=== PATIENT | female | born 1940 | race Caucasian/White ===

== ENCOUNTER → 2019-01-30 | Outpatient (CLI) | payer MEDICARE, BC | LOC: CPPFTMAIN 12:52 | PROVIDERS: ATTEND Internal Medicine | DX: J43.9 Emphysema, unspecified (principal) | CPT/HCPCS: 94060; 94726; 94729 ==

== ENCOUNTER → 2019-03-06 | Outpatient (CLI) | payer MEDICARE, BC ==
--- NOTE | 2019-03-06 13:12 | CT ---
EXAMINATION TYPE: CT chest wo con DATE OF EXAM: 03/06/2019 COMPARISON: 02/07/2019 chest x-ray HISTORY: Interstitial lung disease. CT DLP: 263.60 mGycm. Automated Exposure Control for Dose Reduction was Utilized. TECHNIQUE: CT scan of the thorax is performed without IV contrast. FINDINGS: LUNGS: Within the anterior segment left upper lobe axial image 34 there is a small 2 mm pulmonary nod ule. Calcified nodule left upper lobe posteriorly image 27 compatible with granuloma. Subpleural nodu le measuring 1 mm anterior margin right upper lobe image 26. The tracheobronchial tree is patent. Dif fuse emphysematous changes are seen. Interlobular septal thickening at the lung bases noted compatibl e with chronic interstitial lung disease. MEDIASTINUM: Lack of IV contrast is noted to limit evaluation for mediastinal and especially hilar ad enopathy. There are no definitive greater than 1 cm hilar or mediastinal lymph nodes. No cardiomega ly or pericardial effusion is seen. OTHER: Vascular calcifications are seen. Coronary artery atherosclerotic change noted. There is a lef t-sided thyroid nodule measuring 1.4 cm. Hypertrophic and degenerative change of the spine. IMPRESSION: 1. Diffuse COPD with findings suggestive of interstitial pulmonary fibrosis involving the lung bases. 2. There are multiple less than 5 mm pulmonary nodules one of which is calcified. They're too small t o characterize. Six-month follow-up is recommended to confirm stability. 3. 1.4 cm left thyroid nodule correlate clinically.
--- NOTE | 2019-03-07 11:19 | ECHOF ---
Referral Reason:J84.9 Interstitial lung dz,I27.0 Pulm hypertension MEASUREMENTS -------- HEIGHT: 162.6 cm WEIGHT: 54.0 kg BP: 191/83 RVIDd: 2.7 cm (< 3.3) IVSd: 1.0 cm (0.6 - 1.1) LVIDd: 3.2 cm (3.9 - 5.3) LVPWd: 1.0 cm (0.6 - 1.1) IVSs: 1.3 cm LVIDs: 2.2 cm LVPWs: 1.3 cm LA Diam: 2.8 cm (2.7 - 3.8) LAESV Index (A-L): 11.84 ml/m Ao Diam: 2.9 cm (2.0 - 3.7) AV Cusp: 1.6 cm (1.5 - 2.6) MV EXCURSION: 13.254 mm (> 18.000) MV EF SLOPE: 48 mm/s (70 - 150) EPSS: 0.6 cm MV E Rigo: 0.59 m/s MV DecT: 320 ms MV A Rigo: 0.84 m/s MV E/A Ratio: 0.71 RAP: 5.00 mmHg RVSP: 47.75 mmHg TAPSE: 1.55 cm FINDINGS -------- Sinus rhythm. This was a technically adequate study. The left ventricular size is normal. Left ventricular wall thickness is normal. Overall left vent ricular systolic function is normal with, an EF between 55 - 60 %. The diastolic filling pattern is normal for the age of the patient 6.42. The right ventricle is normal in size. Normal LA size by volume 22+/-6 ml/m2. The right atrial size is normal. Interatrial and interventricular septum intact. There is mild aortic valve sclerosis. The mitral valve leaflets are mildly thickened. No mitral regurgitation. Gvwl-oy-iuovetby tricuspid regurgitation present. There is mild to moderate pulmonary hypertension. The right ventricular systolic pressure, as measured by Doppler, is 47.75mmHg. Trace/mild (physiologic) pulmonic regurgitation. The aortic root size is normal. Normal inferior vena cava with normal inspiratory collapse consistent with estimated right atrial pre ssure of 5 mmHg. There is no pericardial effusion. CONCLUSIONS -------- 1. Sinus rhythm. 2. This was a technically adequate study. 3. The left ventricular size is normal. 4. Left ventricular wall thickness is normal. 5. Overall left ventricular systolic function is normal with, an EF between 55 - 60 %. 6. The diastolic filling pattern is normal for the age of the patient 6.42 7. Normal LA size by volume 22+/-6 ml/m2. 8. There is mild aortic valve sclerosis. 9. The mitral valve leaflets are mildly thickened. 10. Dfdn-fi-utbvevfe tricuspid regurgitation present. 11. There is mild to moderate pulmonary hypertension. 12. Trace/mild (physiologic) pulmonic regurgitation. 13. The aortic root size is normal. 14. Normal inferior vena cava with normal inspiratory collapse consistent with estimated right atrial pressure of 5 mmHg. 15. There is no pericardial effusion. PHYSICIAN/INTERNIST: Melanie Galeas RDCS
== END | disposition home or self-care (01) ==
LOC: RADCTMAIN 12:19
PROVIDERS: ATTEND Internal Medicine
DX: J84.9 Interstitial pulmonary disease, unspecified (principal); I27.0 Primary pulmonary hypertension; J44.9 Chronic obstructive pulmonary disease, unspecified; E04.1 Nontoxic single thyroid nodule
CPT/HCPCS: 71250; 93306

== ENCOUNTER → 2021-12-27 | Outpatient (CLI) | payer MEDICARE ==
[2021-12-27 18:01] LABS: African American GFR (CKD) >90 (>60 ml/min/1.73 sqM); Blood Urea Nitrogen 12 mg/dL (7-17); Non-African American GFR(CKD) 88 (>60 ml/min/1.73 sqM)
--- NOTE | 2021-12-27 22:00 | CT ---
EXAMINATION TYPE: CT chest w con CT DLP: 135.6 mGycm, Automated exposure control for dose reduction was used. DATE OF EXAM: 12/27/2021 6:40 PM COMPARISON: CT chest 03/06/2019. CLINICAL INDICATION:Female, 81 years old with history of R04.2 HEMOPTYSIS; TECHNIQUE: Multiple axial images were obtained through the chest. Contrast used:100 mL of Isovue 300 with IV Contrast, Oral contrast used: without Oral Contrast FINDINGS: LUNGS/ PLEURA: Severe emphysematous changes are seen throughout the lungs. No evidence of pneumothora x or pleural effusion. No focal consolidation. Scattered pulmonary nodules which are stable. Example includes right lower lobe 4 mm pulmonary nodule near the diaphragm(Series 3 image 52) and left lower lobe 3 mm pulmonary nodule image 33. AIRWAY: Bronchiectasis changes are seen most pronounced in the lung base on the right. HEART: Size within normal limits. There is atherosclerosis of the coronary arteries. MEDIASTINUM: No gross evidence of adenopathy. VASCULATURE: No aortic aneurysm. There is moderate to severe atherosclerosis throughout the arterial vasculature. The pulmonary trunk is dilated up to 35 mm. No filling defect within the pulmonary zulma rial vasculature to suggest pulmonary embolus. MUSCULOSKELETAL: Mild disc degeneration changes are present throughout the thoracolumbar spine. SOFT TISSUES/LYMPH NODES: Unremarkable. LOWER NECK: Multiple hypodense thyroid nodules are present measuring up to 9 mm in the right and 7 mm on the left. UPPER ABDOMEN: No significant findings. IMPRESSION: 1. No new or enlarging pulmonary nodules. No finding to explain patient's hemoptysis. 2. Severe COPD changes.
== END | disposition home or self-care (01) ==
LOC: RADCTMAIN 17:28
PROVIDERS: ATTEND Internal Medicine
DX: J44.9 Chronic obstructive pulmonary disease, unspecified (principal)
CPT/HCPCS: 82565; 84520; 71260; 36415; Q9967

== ENCOUNTER 2023-05-06 06:36 | Inpatient (IN) | payer MEDICARE ==
[2023-05-06] MEDS ORDERED: SODIUM CHLORIDE 0.9% 1,000 ML IV STA ×3 (07:11→08:50)
[2023-05-06] MEDS ORDERED: HEPARIN SODIUM 1,000 UN/ML (10ML VL) IV PRN ×2 (07:27→09:19)
[2023-05-06] MEDS ORDERED: HEPARIN SODIUM 1,000 UN/ML (10ML VL) IV ONE (07:27)
[2023-05-06 07:30] LABS: Anisocytosis Slight; Basophils % (A) 0 %; Eosinophils % (A) 0 %; HCT 38.7 % (34.0-46.0); HGB 12.3 gm/dL (11.4-16.0); Hypochromasia Slight; Lymphocytes # (A) 0.7 k/uL (1.0-4.8); Lymphocytes % (A) 10 %; MCH 26.3 pg (25.0-35.0); MCHC 31.7 g/dL (31.0-37.0); MCV 82.8 fL (80.0-100.0); Mean Platelet Volume 8.8; Monocytes # (A) 0.5 k/uL (0-1.0); Monocytes % (A) 8 %; Neutrophils # (A) 5.4 k/uL (1.3-7.7); Neutrophils % (A) 80 %; Platelet Count 263 k/uL (150-450); RBC 4.67 m/uL (3.80-5.40); RDW 16.1 % (11.5-15.5); WBC 6.8 k/uL (3.8-10.6)
[2023-05-06] MEDS ORDERED: HEPARIN SOD,PORK IN 0.45% NACL 25,000 UNIT in 0.45% NACL 1 250ML.BAG IV SCH (07:30)
--- NOTE | 2023-05-06 07:36 | ED ---
General Adult HPI - General Chief complaint: Arrhythmia/Palpitations Stated complaint: SOB Time Seen by Provider: 05/06/23 07:11 Source: patient, EMS Mode of arrival: EMS Limitations: no limitations - History of Present Illness Initial comments: Dictation was produced using [employer] dictation software. please excuse any grammatical, word or spelling errors. Chief Complaint: 82-year-old female presents to the emergency department weakn ess and palpitations History of Present Illness: Patient is an 82-year-old female she was recently diagnosed with covered. She has been recovering at home with home health care nurse. Patient was doing fine yesterday around lunchtime when home health care visiting nurse was there. That same evening around 10:00 she started to feel very fatigued. She is so fatigued she couldn't stand up. Patient denies any palpitations. She has no complaints at the bedside. Patient has no history of A. fib. At that time she started having some dyspnea headache nausea and weakness. She's been getting antipyretics all day yesterday. She has no history of A. fib or cardiac conditions. EMS was called patient was found to be in A. fib with RVR. The ROS documented in this emergency department record has been reviewed and confirmed by me. Those systems with pertinent positive or negative responses have been documented in the HPI. All other systems are other negative and/or noncontributory. - Related Data Allergies Allergy/AdvReac Type Severity Reaction Status Date / Time fentanyl Allergy Unknown Verified 05/06/23 06:43 tramadol Allergy Unknown Verified 05/06/23 06:43 Review of Systems ROS Statement: Those systems with pertinent positive or pertinent negative responses have been documented in the HPI. ROS Other: All systems not noted in ROS Statement are negative. Past Medical History Past Medical History: COPD Additional Past Medical History / Comment(s): Emphysema, Pulmonary HTN Past Surgical History: No Surgical Hx Reported Smoking Status: Never smoker General Exam - General Exam Comments Initial Comments: PHYSICAL EXAM: General Impression: Alert and oriented x3, not in acute distress HEENT: Normocephalic atraumatic, extra-ocular movements intact, pupils equal and reactive to light bilaterally, mucous membranes moist. Cardiovascular: Irregular Chest: Able to complete full sentences, no retractions, no tachypnea Abdomen: abdomen soft, non-tender, non-distended, no organomegaly Musculoskeletal: Pulses present and equal in all extremities, no peripheral edema Motor: no focal deficits noted Neurological: CN II-XII grossly intact, no focal motor or sensory deficits noted Skin: Intact with no visualized rashes Psych: Normal affect and mood Limitations: no limitations Course Vital Signs 05/06/23 05/06/23 05/06/23 06:38 06:43 08:05 Temperature 97.6 F Pulse Rate 135 H 147 H Respiratory 18 18 Rate Blood Pressure 102/63 99/63 O2 Sat by Pulse 92 L 95 96 Oximetry 05/06/23 09:03 Temperature Pulse Rate 126 H Respiratory 18 Rate Blood Pressure 105/63 O2 Sat by Pulse 94 L Oximetry EKG Findings - EKG Comments: EKG Findings:: My EKG interpretation: Ventricular rate 134, A. fib with RVR, QRS 73, QTC 344. no QTC prolongation. No EKG for comparison. It does appear to be some very mild ST depressions in inferior leads and lateral precordial leads. Overall this EKG is concerning for a rate dependent ischemia. Medical Decision Making - Medical Decision Making Was pt. sent in by a medical professional or institution (, PA, AUTOMOBILE RELOCATION ENGINEER, urgent care, hospital, or [facility]...) When possible be specific @ -No Did you speak to anyone other than the patient for history (EMS, parent, family, police, friend...)? What history was obtained from this source @ -History obtained from daughter as described above Did you review nursing and triage notes (agree or disagree)? Why? @ -I reviewed and agree with nursing and triage notes Were old charts reviewed (outside hosp., previous admission, EMS record, old EKG, old radiological studies, urgent care reports/EKG's, [facility] records)? Report findings @ -No old charts were reviewed Differential Diagnosis (chest pain, altered mental status, abdominal pain women, abdominal pain men, vaginal bleeding, musculoskeletal, weakness, fever, dyspnea, syncope, headache, dizziness, GI bleed, back pain, seizure, CVA, palpatations, mental health)? @ - Differential Palpitations: Ventricular arrhythmias, atrial arrhythmias, myocardial infarction, anemia, thyrotoxicosis, electrolyte imbalance, hypokalemia, pulmonary embolism, pulmonary disease, drugs, alcohol, anxiety, stress.... This is not meant to be an all-inclusive list. EKG interpreted by me (3pts min.). @ -See above X-rays interpreted by me (1pt min.). @ -Chest x-ray shows right lower lobe infiltrate CT interpreted by me (1pt min.). @ -CT angiography shows no saddle embolism U/S interpreted by me (1pt. min.). @ -None done What testing was considered but not performed or refused? (CT, X-rays, U/S, labs)? Why? @ -None What meds were considered but not given or refused? Why? @ -None Did you discuss the management of the patient with other professionals (professionals i.e. , PA, AUTOMOBILE RELOCATION ENGINEER, lab, RT, psych nurse, social science professor, cake inspector, teacher, guest services officer, director of casework)? Give summary @ -case discussed with hospitalist for admission Was smoking cessation discussed for >3mins.? @ -No Was critical care preformed (if so, how long)? @ -yes 33 minutes Were there social determinants of health that impacted care today? How? (Homelessness, low income, unemployed, alcoholism, drug addiction, transportation, low edu. Level, literacy, decrease access to med. care, penitentiary, rehab)? @ -No Was there de-escalation of care discussed even if they declined (Discuss DNR or withdrawal of care, Hospice)? DNR status @ -No What co-morbidities impacted this encounter? (DM, HTN, Smoking, COPD, CAD, Cancer, CVA, ARF, Chemo, Hep., AIDS, mental health diagnosis, sleep apnea, morbid obesity)? @ -None Was patient admitted / discharged? Hospital course, mention meds given and route, prescriptions, significant lab abnormalities, going to OR and other pertinent info. @ -82-year-old female presents emergency department for palpitations. Vital signs upon arrival shows tachycardia. Patient's heart rate is regular. EKG margot ws atrial fibrillation with rapid ventricular rate. Laboratory evaluation obtained. CBC, coag panel, metabolic panel is unremarkable. Troponin level is 0.047. Likely secondary to rate dependent ischemia. Especially given that she does have some ST depressions on EKG. She started on heparin and Cardizem with improvement of vital signs. Patient also has small pulmonary embolism seen on CT angiography with no evidence of right heart strain. Patient reevaluated at bedside 10:00 AM findings medical condition. We'll be admitted to 3 S. Undiagnosed new problem with uncertain prognosis? @ -No Drug Therapy requiring intensive monitoring for toxicity (Heparin, Nitro, Insulin, Cardizem)? @ -No Were any procedures done? @ -No Diagnosis/symptom? Acute, or Chronic, or Acute on Chronic? Uncomplicated (without systemic symptoms) or Complicated (systemic symptoms)? @ -1. Coronavirus, 2. A. fib with RVR, 3. Pulmonary embolism Side effects of treatment? @ -No Exacerbation, Progression, or Severe Exacerbation? @ -No Poses a threat to life or bodily function? How? (Chest pain, [place], AR, pneumonia, PE, COPD, DKA, ARF, appy, cholecystitis, CVA, Diverticulitis, Homicidal, Suicidal, threat to staff... and all critical care pts) @ -yes - Lab Data Result diagrams: 05/06/23 07:18 05/06/23 07:18 Lab Results 05/06/23 05/06/23 05/06/23 Range/Units 07:18 07:18 07:18 WBC 6.8 (3.8-10.6) k/uL RBC 4.67 (3.80-5.40) m/uL Hgb 12.3 (11.4-16.0) gm/dL Hct 38.7 (34.0-46.0) % MCV 82.8 (80.0-100.0) fL MCH 26.3 (25.0-35.0) pg MCHC 31.7 (31.0-37.0) g/dL RDW 16.1 H (11.5-15.5) % Plt Count 263 (150-450) k/uL MPV 8.8 Neutrophils % 80 % Lymphocytes % 10 % Monocytes % 8 % Eosinophils % 0 % Basophils % 0 % Neutrophils # 5.4 (1.3-7.7) k/uL Lymphocytes # 0.7 L (1.0-4.8) k/uL Monocytes # 0.5 (0-1.0) k/uL Eosinophils # 0.0 (0-0.7) k/uL Basophils # 0.0 (0-0.2) k/uL Hypochromasia Slight Anisocytosis Slight PT 10.9 (10.0-12.5) sec INR 1.0 (<1.2) APTT 23.5 (22.0-30.0) sec D-Dimer 2.74 H (<0.60) mg/L FEU Sodium 137 (137-145) mmol/L Potassium 4.2 (3.5-5.1) mmol/L Chloride 104 (98-107) mmol/L Carbon Dioxide 22 (22-30) mmol/L Anion Gap 11 mmol/L BUN 27 H (7-17) mg/dL Creatinine 0.91 (0.52-1.04) mg/dL Est GFR (CKD-EPI)AfAm 69 (>60 ml/min/1.73 sqM) Est GFR (CKD-EPI)NonAf 60 (>60 ml/min/1.73 sqM) Glucose 87 (74-99) mg/dL Calcium 8.4 (8.4-10.2) mg/dL Magnesium 1.8 (1.6-2.3) mg/dL Total Bilirubin 0.5 (0.2-1.3) mg/dL AST 32 (14-36) U/L ALT 21 (4-34) U/L Alkaline Phosphatase 71 (38-126) U/L Troponin I (0.000-0.034) ng/mL Total Protein 6.2 L (6.3-8.2) g/dL Albumin 3.1 L (3.5-5.0) g/dL TSH <0.015 L (0.465-4.680) mIU/L SARS-CoV-2 (PCR) (Not Detectd) 05/06/23 05/06/23 Range/Units 07:18 09:15 WBC (3.8-10.6) k/uL RBC (3.80-5.40) m/uL Hgb (11.4-16.0) gm/dL Hct (34.0-46.0) % MCV (80.0-100.0) fL MCH (25.0-35.0) pg MCHC (31.0-37.0) g/dL RDW (11.5-15.5) % Plt Count (150-450) k/uL MPV Neutrophils % % Lymphocytes % % Monocytes % % Eosinophils % % Basophils % % Neutrophils # (1.3-7.7) k/uL Lymphocytes # (1.0-4.8) k/uL Monocytes # (0-1.0) k/uL Eosinophils # (0-0.7) k/uL Basophils # (0-0.2) k/uL Hypochromasia Anisocytosis PT (10.0-12.5) sec INR (<1.2) APTT (22.0-30.0) sec D-Dimer (<0.60) mg/L FEU Sodium (137-145) mmol/L Potassium (3.5-5.1) mmol/L Chloride (98-107) mmol/L Carbon Dioxide (22-30) mmol/L Anion Gap mmol/L BUN (7-17) mg/dL Creatinine (0.52-1.04) mg/dL Est GFR (CKD-EPI)AfAm (>60 ml/min/1.73 sqM) Est GFR (CKD-EPI)NonAf (>60 ml/min/1.73 sqM) Glucose (74-99) mg/dL Calcium (8.4-10.2) mg/dL Magnesium (1.6-2.3) mg/dL Total Bilirubin (0.2-1.3) mg/dL AST (14-36) U/L ALT (4-34) U/L Alkaline Phosphatase (38-126) U/L Troponin I 0.047 H* (0.000-0.034) ng/mL Total Protein (6.3-8.2) g/dL Albumin (3.5-5.0) g/dL TSH (0.465-4.680) mIU/L SARS-CoV-2 (PCR) Detected A (Not Detectd) Disposition Clinical Impression: Atrial fibrillation, Pulmonary embolism Disposition: ADMITTED IP TO THIS [facility] Condition: Serious Referrals: Brittni Gilbert MD [Primary Care Provider] - 1-2 days Decision Time: 09:30
[2023-05-06 07:46] LABS: ALT 21 U/L (4-34); AST 32 U/L (14-36); African American GFR (CKD) 69 (>60 ml/min/1.73 sqM); Albumin 3.1 g/dL (3.5-5.0); Alkaline Phosphatase 71 U/L (38-126); Anion Gap 11 mmol/L; Blood Urea Nitrogen 27 mg/dL (7-17); Calcium 8.4 mg/dL (8.4-10.2); Carbon Dioxide 22 mmol/L (22-30); Chloride 104 mmol/L (98-107); Glucose 87 mg/dL (74-99); Magnesium 1.8 mg/dL (1.6-2.3); Non-African American GFR(CKD) 60 (>60 ml/min/1.73 sqM); Potassium 4.2 mmol/L (3.5-5.1); Sodium 137 mmol/L (137-145); Total Bilirubin 0.5 mg/dL (0.2-1.3); Total Protein 6.2 g/dL (6.3-8.2)
[2023-05-06 07:58] LABS: Partial Thromboplastin Time 23.5 sec (22.0-30.0); Prothrombin Time 10.9 sec (10.0-12.5)
--- NOTE | 2023-05-06 08:02 | XR ---
EXAMINATION TYPE: XR chest 2V DATE OF EXAM: 05/06/2023 COMPARISON: NONE HISTORY: Shortness of breath TECHNIQUE: Frontal and lateral views of the chest are obtained. FINDINGS: Scattered senescent parenchymal changes noted. Hyperinflation compatible with COPD. Chronic increased markings at the lung bases although developing right lower lobe infiltrate is difficult to. No evidence for infiltrate. No evidence for atelectasis. Heart size is stable. Mediastinal structures are stable and grossly unremarkable. No evidence for hilar prominence. Degenerative changes dorsal spine. IMPRESSION: 1. Chronic increased markings at the lung bases although developing right lower lobe infiltrate is di fficult to.
--- NOTE | 2023-05-06 08:48 | CT ---
EXAMINATION TYPE: CT angio chest DATE OF EXAM: 05/06/2023 COMPARISON: 12/27/2021 HISTORY: ELEVATED D-DIMER CT DLP: 257.4 mGycm CONTRAST: CT chest with contrast and 3D reconstruction with MIP imaging is performed with IV Contrast, patient injected with 80 mL of Isovue 370. Contrast-enhanced CT of the chest was performed through the course of the pulmonary arteries with kacey g and mediastinal window settings submitted. 3D reconstruction with MIP imaging was also performed. PULMONARY ARTERIES: There is mural thickening with the suggestion of mural-based thrombus within the various lobar, segmental and subsegmental branches bilaterally as seen on bookmarked images. Within r ight lower lobe pulmonary arterial branch seen best on image 93 sequence 501 there is more central fi lling defects seen. Findings are felt to reflect a combination of acute on chronic pulmonary embolism . No evidence for saddle component or right heart strain. LUNGS: Moderate to severe centrilobular emphysema. Patchy density right lower lobe may reflect develo ping pneumonia. Mild subpleural fibrosis. MEDIASTINUM: Thoracic aorta is of normal caliber. Scattered mural thrombus seen.. The heart is mildl y enlarged. No evidence for mediastinal mass. No mediastinal lymph nodes greater than 1cm. HILAR STRUCTURES: No evidence for mass. No hilar lymph nodes greater than 1 cm. UPPER ABDOMEN: No significant abnormality is seen. IMPRESSION: 1. Findings suggest acute on chronic pulmonary embolism. Correlate clinically. See above discussion. 2. Right lower lobe developing pneumonia is difficult to exclude. Correlate clinically.
[2023-05-06] MEDS: DILTIAZEM 125 MG in SODIUM CHLORIDE 0.9% 100 ML IV SCH (09:16)
[2023-05-06] MEDS ORDERED: NALOXONE 0.4 MG/ML 1 ML VIAL IV PRN (09:41)
[2023-05-06] MEDS: HEPARIN SOD,PORK IN 0.45% NACL 25,000 UNIT in 0.45% NACL 1 250ML.BAG IV SCH (09:54)
[2023-05-06] MEDS: SODIUM CHLORIDE 0.9% 1,000 ML IV SCH ×2 (09:55→23:01)
[2023-05-06] MEDS ORDERED: ASPIRIN 81 MG PO STA (10:01)
[2023-05-06] MEDS ORDERED: ALBUTEROL HFA INHALER INHALATION PRN (13:35)
[2023-05-06] MEDS ORDERED: HYDROcodone/APAP 7.5-325MG 1 EACH TAB PO PRN (13:35)
[2023-05-06] MEDS ORDERED: ALBUTEROL NEBULIZED 2.5 MG/3 ML INHALATION PRN (13:35)
[2023-05-06] MEDS ORDERED: ACETAMINOPHEN TAB 500 MG TAB PO PRN (13:35)
[2023-05-06] MEDS ORDERED: PNEUMONIA PROTOCOL UTILIZED 1 EACH MISC PO PRN (13:39)
[2023-05-06] MEDS ORDERED: methylPREDNISolone SOD SUCCI 40 MG/ML 1 ML VIAL IV SCH (13:45)
[2023-05-06] MEDS: ASCORBIC ACID 500 MG TAB PO SCH ×2 (13:51→20:42)
[2023-05-06] MEDS: CHOLECALCIFEROL 25 MCG (1000 IU) TABLET PO SCH (13:52)
[2023-05-06] MEDS: PANTOPRAZOLE 40 MG TABLET PO SCH (13:52)
--- NOTE | 2023-05-06 14:29 | P.HPIM ---
History of Present Illness H&P Date: 05/06/23 Chief Complaint: Palpitations * 82-year-old patient with past medical history significant for COPD, history of pulmonary hypertension, recently diagnosed with Covid presents to the emergency department with complains of fatigue, generalized weakness at the time of presentation in ER patient was noted to be short of breath had episode of nausea patient was noted to have new onset atrial fibrillation and was noted to have rapid ventricular response. Workup initiated in ER included a chest x-ray which showed right lower lobe pneumonia patient had CT chest done which showed moderate to severe emphysema patchy density right lower lobe concerning for pneumonia. CT finding concern for acute on chronic pulmonary embolism. * EKG obtained in ER showed atrial fibrillation with heart rate of 134, no ST segment elevation was noted patient did have ST segment depression in lateral leads. * At the time of presentation in ER patient was given 2 L of fluid bolus, patient started on IV heparin and Cardizem drip with consultation from cardiology as well as pulmonary medicine * Patient primary care physician was contacted by ED team and given a sign out on further follow-up, [facility] took over since covering Dr. Bond. * History was obtained from Daughter as well REVIEW OF SYSTEMS: Fatigue, generalized weakness, shortness of breath CONSTITUTIONAL: No fever, no malaise, HEENT: No recent visual problems or hearing problems. Denied any sore throat. CARDIOVASCULAR: No chest pain, orthopnea, PND, no palpitations, no syncope. PULMONARY: Fatigue, generalized weakness, shortness of breath GASTROINTESTINAL: No diarrhea, no nausea, no vomiting, no abdominal pain. NEUROLOGICAL: No headaches, no weakness, no numbness. HEMATOLOGICAL: Denies any bleeding or petechiae. GENITOURINARY: Denies any burning micturition, frequency, or urgency. MUSCULOSKELETAL/RHEUMATOLOGICAL: Denies any joint pain, swelling, or any muscle pain. ENDOCRINE: Denies any polyuria or polydipsia. PHYSICAL EXAMINATION: GENERAL: The patient is alert and oriented x3, not in any acute distress. Well developed, well nourished. Nasal cannula in place HEENT: Pupils are round and equally reacting to light. EOMI. CARDIOVASCULAR: S1 and S2 present. Irregular rhythm tachycardia noted PULMONARY: Chest is clear to auscultation, no wheezing or crackles. ABDOMEN: Soft, nontender, nondistended, normoactive bowel sounds. No palpable organomegaly. MUSCULOSKELETAL: No joint swelling or deformity. EXTREMITIES: No cyanosis, clubbing, or pedal edema. NEUROLOGICAL: Gross neurological examination did not reveal any focal deficits. SKIN: No rashes. Past Medical History Past Medical History: COPD Additional Past Medical History / Comment(s): Emphysema, Pulmonary HTN Past Surgical History: No Surgical Hx Reported Smoking Status: Never smoker Medications and Allergies Home Medications Medication Instructions Recorded Confirmed Type Acetaminophen Tab [Tylenol Tab] 500 mg PO Q6HR PRN 05/06/23 05/06/23 History Albuterol Nebulized [Ventolin 2.5 mg INHALATION RT-Q6H PRN 05/06/23 05/06/23 History Nebulized] Albuterol Sulfate [Albuterol 1 - 2 puff PO RT-Q6H PRN 05/06/23 05/06/23 History Sulfate Hfa] Ascorbic Acid [Vitamin C] 500 mg PO BID 05/06/23 05/06/23 History Aspirin EC [Ecotrin Low Dose] 81 mg PO HS 05/06/23 05/06/23 History Atorvastatin [Lipitor] 40 mg PO HS 05/06/23 05/06/23 History Cefuroxime [Ceftin] 250 mg PO BID 05/06/23 05/06/23 History Cholecalciferol [Vitamin D3 (25 25 mcg PO DAILY 05/06/23 05/06/23 History Mcg = 1000 Iu)] HYDROcodone/APAP 7.5-325MG [[place] 1 tab PO DAILY PRN 05/06/23 05/06/23 History 7.5-325] Losartan Potassium [Cozaar] 100 mg PO DAILY 05/06/23 05/06/23 History Montelukast Sodium 10 mg PO HS 05/06/23 05/06/23 History Omeprazole [PriLOSEC] 40 mg PO DAILY 05/06/23 05/06/23 History amLODIPine [Norvasc] 5 mg PO BID 05/06/23 05/06/23 History predniSONE [Deltasone] See Taper PO DAILY 05/06/23 05/06/23 History Allergies Allergy/AdvReac Type Severity Reaction Status Date / Time fentanyl Allergy Unknown Verified 05/06/23 12:52 tramadol Allergy Unknown Verified 05/06/23 12:52 Physical Exam Vitals: Vital Signs Temp Pulse Resp BP Pulse Ox 05/06/23 09:03 126 H 18 105/63 94 L 05/06/23 08:05 147 H 18 99/63 96 05/06/23 06:43 95 05/06/23 06:38 97.6 F 135 H 18 102/63 92 L Intake and Output 05/05/23 05/06/23 05/06/23 22:59 06:59 14:59 Intake Total 9.707 Balance 9.707 Intake: Intake, IV Titration 9.707 Amount Heparin Sod,Pork in 0.45% 9.707 NaCl 25,000 unit In 0.45 % NaCl 1 250ml.bag @ 12 UNITS/KG/HR 5.443 mls/hr IV .Q24H [facility] Rx#: [id number] Other: Weight 45.359 kg Results CBC & Chem 7: 05/06/23 07:18 05/06/23 07:18 Labs: Abnormal Lab Results - Last 24 Hours (Table) 05/06/23 05/06/23 05/06/23 Range/Units 07:18 07:18 07:18 RDW 16.1 H (11.5-15.5) % Lymphocytes # 0.7 L (1.0-4.8) k/uL D-Dimer 2.74 H (<0.60) mg/L FEU BUN 27 H (7-17) mg/dL Troponin I (0.000-0.034) ng/mL Total Protein 6.2 L (6.3-8.2) g/dL Albumin 3.1 L (3.5-5.0) g/dL TSH <0.015 L (0.465-4.680) mIU/L SARS-CoV-2 (PCR) (Not Detectd) 05/06/23 05/06/23 Range/Units 07:18 09:15 RDW (11.5-15.5) % Lymphocytes # (1.0-4.8) k/uL D-Dimer (<0.60) mg/L FEU BUN (7-17) mg/dL Troponin I 0.047 H* (0.000-0.034) ng/mL Total Protein (6.3-8.2) g/dL Albumin (3.5-5.0) g/dL TSH (0.465-4.680) mIU/L SARS-CoV-2 (PCR) Detected A (Not Detectd) Assessment and Plan Assessment: Assessment and plan * Acute on chronic pulmonary embolism * New onset atrial flutter fibrillation with rapid ventricular response * History of COPD * Recent COVID-19 infection * Right lower lobe pneumonia * In regards to pulmonary embolism, patient started on IV heparin, consultation obtained from pulmonary medicine and cardiology, echocardiogram ordered, venous ultrasound lower extremity ordered * Regards to atrial fibrillation, continue patient on IV heparin, continue IV Cardizem drip cardiology consulted * in regards to history of COPD continue patient on bronchodilator protocol started on IV Solu-Medrol * In regards to right lower lobe pneumonia continue patient on Rocephin and azithromycin, urine Legionella ordered, pulmonary medicine consulted * Care plan discussed with patient and daughter * CODE STATUS is full code Time with Patient: Greater than 30
--- NOTE | 2023-05-06 14:56 | US ---
EXAMINATION TYPE: US venous doppler duplex LE DATE OF EXAM: 05/06/2023 2:39 PM COMPARISON: NONE CLINICAL INDICATION: Female, 82 years old with history of Pulmonary embolism; Covid and PE's SIDE PERFORMED: Bilateral TECHNIQUE: The lower extremity deep venous system is examined utilizing real time linear array sonog hcarles with graded compression, doppler sonography and color-flow sonography. VESSELS IMAGED: Common Femoral Vein Deep Femoral Vein Greater Saphenous Vein * Femoral Vein Popliteal Vein Small Saphenous Vein * Proximal Calf Veins (* superficial vessels) *unable to do compression imaging behind knees due to position and patient's tolerance Right Leg: Internal echoes seen at right distal pop vein extending up through distal FV, some flow n oted within distal pop vein, but echoes do not compress, acute DVT Left Leg: Negative for DVT IMPRESSION: 1. The distal right femoral vein and right popliteal vein are noncompressible with internal echoes co nsistent with acute DVT. 2. The deep venous system of the left lower extremity from the common femoral vein to the proximal ca lf veins is patent and compressible with augmentable flow throughout and there is no evidence of left lower extremity DVT.
--- NOTE | 2023-05-06 16:40 | P.CNPUL ---
History of Present Illness Consult date: 05/06/23 Requesting physician: Brittni Gilbert Reason for consult: dyspnea, abnormal CXR/CT Chief complaint: Weakness, shortness of breath, headache History of present illness: This is an 82-year-old female with a known history of chronic obstructive pulmonary disease, pulmonary hypertension, former smoker on home oxygen who was recently diagnosed with CoVID and had been recovering at home with home health care nurses. Last evening she became very fatigued and weak she presented to the emergency room this morning with headache nausea shortness of breath and weakness. She also was having fevers. EKG revealed atrial fibrillation with a rapid ventricular response and some ST and T wave abnormalities. X-ray revealed chronic changes at the lung bases with a developing right lower lobe infiltrate. CT angiogram revealed acute on chronic pulmonary embolism. Right lower lobe developing pneumonia difficult to exclude. White count 6.8. Hemoglobin 12.3. Platelets 263. Lymphocytes 0.7. D-dimer 2.74. Sodium 137. Potassium 4.2. Bicarb 22. BUN 27. Creatinine 0.91. Troponin 0.047. TSH less than 0.015. COVID-19 screen positive. She is seen today in consultation in the emergency department. She is currently resting on stretcher. Awake and alert in no acute distress. She is maintaining O2 saturations in the 90s on 4 L/m per nasal cannula. She is currently in sinus bradycardia. She had been initiated on a heparin drip. Cardizem drip at 5 mg per hour. Currently afebrile. Review of Systems REVIEW OF SYSTEMS: CONSTITUTIONAL: Positive for generalized weakness, febrile illness. Denies any recent significant weight loss or weight gain. EYES: Denies change in vision. EARS, NOSE, MOUTH, THROAT: Denies headaches, denies sore throat. CARDIOVASCULAR: Denies chest pain, palpitations or syncopal episodes. RESPIRATORY: Positive for shortness of breath, cough, congestion no hemoptysis. GASTROINTESTINAL: Positive for nausea. GENITOURINARY: Denies hematuria, denies infections. MUSKULOSKELETAL: Denies pain, denies swelling. INTEGUMENTARY: Denies rash, denies eczema. NEUROLOGICAL: Denies recent memory loss, no recent seizure activity. PSYCHIATRIC: Denies anxiety, denies depression. HEMATOLOGIC/LYMPHATIC: Denies anemia, denies enlarged lymph nodes. Past Medical History Past Medical History: COPD Additional Past Medical History / Comment(s): Emphysema, Pulmonary HTN Past Surgical History: No Surgical Hx Reported Smoking Status: Never smoker Medications and Allergies Home Medications Medication Instructions Recorded Confirmed Type Acetaminophen Tab [Tylenol Tab] 500 mg PO Q6HR PRN 05/06/23 05/06/23 History Albuterol Nebulized [Ventolin 2.5 mg INHALATION RT-Q6H PRN 05/06/23 05/06/23 History Nebulized] Albuterol Sulfate [Albuterol 1 - 2 puff PO RT-Q6H PRN 05/06/23 05/06/23 History Sulfate Hfa] Ascorbic Acid [Vitamin C] 500 mg PO BID 05/06/23 05/06/23 History Aspirin EC [Ecotrin Low Dose] 81 mg PO HS 05/06/23 05/06/23 History Atorvastatin [Lipitor] 40 mg PO HS 05/06/23 05/06/23 History Cefuroxime [Ceftin] 250 mg PO BID 05/06/23 05/06/23 History Cholecalciferol [Vitamin D3 (25 25 mcg PO DAILY 05/06/23 05/06/23 History Mcg = 1000 Iu)] HYDROcodone/APAP 7.5-325MG [[place] 1 tab PO DAILY PRN 05/06/23 05/06/23 History 7.5-325] Losartan Potassium [Cozaar] 100 mg PO DAILY 05/06/23 05/06/23 History Montelukast Sodium 10 mg PO HS 05/06/23 05/06/23 History Omeprazole [PriLOSEC] 40 mg PO DAILY 05/06/23 05/06/23 History amLODIPine [Norvasc] 5 mg PO BID 05/06/23 05/06/23 History predniSONE [Deltasone] See Taper PO DAILY 05/06/23 05/06/23 History Allergies Allergy/AdvReac Type Severity Reaction Status Date / Time fentanyl Allergy Unknown Verified 05/06/23 12:52 tramadol Allergy Unknown Verified 05/06/23 12:52 Physical Exam Vitals: Vital Signs Temp Pulse Resp BP Pulse Ox 05/06/23 14:00 57 L 18 115/70 96 05/06/23 13:34 80 18 102/66 98 05/06/23 09:03 126 H 18 105/63 94 L 05/06/23 08:05 147 H 18 99/63 96 05/06/23 06:43 95 05/06/23 06:38 97.6 F 135 H 18 102/63 92 L Intake and Output 05/06/23 05/06/23 05/06/23 06:59 14:59 22:59 Intake Total 9.707 Balance 9.707 Intake: Intake, IV Titration 9.707 Amount Heparin Sod,Pork in 0.45% 9.707 NaCl 25,000 unit In 0.45 % NaCl 1 250ml.bag @ 12 UNITS/KG/HR 5.443 mls/hr IV .Q24H [facility] Rx#: [id number] Other: Weight 45.359 kg GENERAL EXAM: Alert, weak 82-year-old female on 4 L nasal cannula, fairly comfortable in no apparent distress. HEAD: Normocephalic. EYES: Normal reaction of pupils, equal size. NOSE: Clear with pink turbinates. THROAT: No erythema or exudates. NECK: No masses, no JVD. CHEST: No chest wall deformity. LUNGS: Equal air entry with crackles in the right lung base. CVS: S1 and S2 normal with no audible murmur, irregular rhythm. ABDOMEN: No hepatosplenomegaly, normal bowel sounds, no guarding or rigidity. SPINE: No scoliosis or deformity SKIN: No rashes CENTRAL NERVOUS SYSTEM: No focal deficits, tone is normal in all 4 extremities. EXTREMITIES: There is no peripheral edema. No clubbing, no cyanosis. Peripheral pulses are intact. Results - Laboratory Findings CBC and BMP: 05/06/23 07:18 05/06/23 07:18 PT/INR, D-dimer PT 10.9 sec (10.0-12.5) 05/06/23 07:18 INR 1.0 (<1.2) 05/06/23 07:18 D-Dimer 2.74 mg/L FEU (<0.60) H 05/06/23 07:18 Abnormal lab findings: Abnormal Labs 05/06/23 05/06/23 05/06/23 07:18 07:18 07:18 RDW 16.1 H Lymphocytes # 0.7 L D-Dimer 2.74 H BUN 27 H Troponin I Total Protein 6.2 L Albumin 3.1 L TSH <0.015 L SARS-CoV-2 (PCR) 05/06/23 05/06/23 07:18 09:15 RDW Lymphocytes # D-Dimer BUN Troponin I 0.047 H* Total Protein Albumin TSH SARS-CoV-2 (PCR) Detected A - Diagnostic Findings Chest x-ray: image reviewed Assessment and Plan Assessment: Acute hypoxemic respiratory failure secondary to acute on chronic pulmonary embolism and possible early right lower lobe pneumonia Acute DVT of the right lower extremity Acute COVID-19 infection Atrial fibrillation with rapid ventricular response History of hypertension Hyperlipidemia Chronic obstructive pulmonary disease Pulmonary hypertension Gastroesophageal reflux disease Plan: The patient was seen and evaluated Chest x-ray, labs and medications reviewed Continue heparin drip Currently on a Cardizem drip Cardiology consulted Continue ceftriaxone and azithromycin Discontinue Solu-Medrol Initiate Decadron 6 mg daily Add vitamin supplements Titrate the FiO2 as tolerated We will continue to follow and make further recommendations based on her clinical status I have personally seen and examined the patient, performed the documentation and the assessment and plan as written. Number of minutes spent on the visit: 20.
[2023-05-06] MEDS: ATORVASTATIN 40 MG TAB PO SCH (20:42)
[2023-05-06] MEDS: ASPIRIN 81 MG PO SCH (20:42)
[2023-05-06] MEDS: MONTELUKAST 10 MG TAB PO SCH (20:42)
[2023-05-07 04:38] LABS: Anisocytosis Slight; HCT 32.3 % (34.0-46.0); HGB 10.4 gm/dL (11.4-16.0); Hypochromasia Moderate; MCH 27.3 pg (25.0-35.0); MCHC 32.1 g/dL (31.0-37.0); MCV 84.9 fL (80.0-100.0); Mean Platelet Volume 8.7; Platelet Count 219 k/uL (150-450); RBC 3.81 m/uL (3.80-5.40); RDW 16.2 % (11.5-15.5); WBC 1.7 k/uL (3.8-10.6)
[2023-05-07 05:03] LABS: African American GFR (CKD) >90 (>60 ml/min/1.73 sqM); Anion Gap 9 mmol/L; Blood Urea Nitrogen 29 mg/dL (7-17); Calcium 8.2 mg/dL (8.4-10.2); Carbon Dioxide 17 mmol/L (22-30); Chloride 111 mmol/L (98-107); Glucose 88 mg/dL (74-99); Non-African American GFR(CKD) 83 (>60 ml/min/1.73 sqM); Potassium 4.2 mmol/L (3.5-5.1); Sodium 137 mmol/L (137-145)
[2023-05-07] MEDS: PANTOPRAZOLE 40 MG TABLET PO SCH (06:25)
[2023-05-07] MEDS: DILTIAZEM 125 MG in SODIUM CHLORIDE 0.9% 100 ML IV SCH (06:30)
--- NOTE | 2023-05-07 08:50 | XR ---
EXAMINATION TYPE: XR chest 1V portable DATE OF EXAM: 05/07/2023 7:35 AM CLINICAL INDICATION:Female, 82 years old with history of Pneumonia; [facility] COMPARISON: Chest radiographs from M 2523 TECHNIQUE: XR chest 1V portable Frontal view of the chest. FINDINGS: Lungs/Pleura: There are right basilar airspace opacities. There is flattening of the diaphragm with i ncreased lucency of the lungs. No evidence of pneumothorax, pleural effusion or left focal consolidat ion. Pulmonary vascularity: Unremarkable. Heart/mediastinum: Cardiomediastinal silhouette is unremarkable. Musculoskeletal: No acute osseous pathology. Other findings: None Lines/Tubes: IMPRESSION: 1. Right basilar airspace opacities correlate for developing pneumonia. 2. COPD changes.
[2023-05-07] MEDS: LOSARTAN 50 MG TAB PO SCH (09:17)
[2023-05-07] MEDS: ASCORBIC ACID 500 MG TAB PO SCH ×2 (09:17→21:47)
[2023-05-07] MEDS: AZITHROMYCIN 500 MG TAB PO SCH (09:17)
[2023-05-07] MEDS: CHOLECALCIFEROL 25 MCG (1000 IU) TABLET PO SCH (09:17)
[2023-05-07] MEDS: dexAMETHasone 2 MG TAB PO SCH (09:18)
--- NOTE | 2023-05-07 10:31 | P.CRDCN ---
History of Present Illness Consult date: 05/07/23 Chief complaint: Shortness of breath History of present illness: The patient is a pleasant 82-year-old female patient with a past medical history significant for hypertension and dyslipidemia and chronic obstructive pulmonary disease and recently diagnosed of COVID 19 infection she was recovering at home. She presented to the emergency department complaining of shortness of breath for the last 24 hours with no associated chest pain or chest discomfort and no dizziness or lightheadedness and no feeling of heart racing or fluttering and no recent she has been experiencing also cough with no sputum production and no fever or chills. She was diagnosed was left lower extremity DVT and also pulmonary embolism. She was started on heparin IV. After that she went into atrial fibrillation with RVR and started on Cardizem drip and subsequently converted to normal sinus mechanism. No history of atrial fibrillation before. The patient currently doesn't follow-up with the control room technician disease or congestive heart failure or cardiac arrhythmia in a sinus mechanism. She is off Cardizem drip. She still on heparin IV the chest x-ray showed chronic obstructive pulmonary disease. The patient EKG showed A. fib with RVR but subsequent EKG showed sinus mechanism with short [place] interval but no preexcitation. Computed tomography scan of the chest and lower extremity venous duplex study reviewed. The blood work is unremarkable. The examination is remarkable for bilateral expiratory wheezing and regular rhythm with a systolic murmur right and left upper sternal border Assessment Atrial fibrillation with RVR in the setting of pulmonary embolism which is likely triggered the A. fib Recent diagnosis of DVT/PE in the setting of Covid 19 infection Recent diagnosis of Covid 19 infection Chronic hypoxic respiratory failure Hypertension and dyslipidemia Plan DC heparin and start the patient on oral anticoagulation Consider obtaining an echocardiogram either as an inpatient or an outpatient Start the patient on oral AV susan alex agents with metoprolol The patient potentially can be discharged home in the next 12-24 hours Past Medical History Past Medical History: COPD Additional Past Medical History / Comment(s): Emphysema, Pulmonary HTN History of Any Multi-Drug Resistant Organisms: None Reported Past Surgical History: No Surgical Hx Reported Additional Past Surgical History / Comment(s): aortic stent 1995. Past Anesthesia/Blood Transfusion Reactions: Previous Problems w/ Anesthesia Additional Past Anesthesia/Blood Transfusion Reaction / Comment(s): Family states "Hard to wake up from anesthesia.". NO blood transfusions in past. Smoking Status: Never smoker Medications and Allergies Home Medications Medication Instructions Recorded Confirmed Type Acetaminophen Tab [Tylenol Tab] 500 mg PO Q6HR PRN 05/06/23 05/06/23 History Albuterol Nebulized [Ventolin 2.5 mg INHALATION RT-Q6H PRN 05/06/23 05/06/23 History Nebulized] Albuterol Sulfate [Albuterol 1 - 2 puff PO RT-Q6H PRN 05/06/23 05/06/23 History Sulfate Hfa] Ascorbic Acid [Vitamin C] 500 mg PO BID 05/06/23 05/06/23 History Aspirin EC [Ecotrin Low Dose] 81 mg PO HS 05/06/23 05/06/23 History Atorvastatin [Lipitor] 40 mg PO HS 05/06/23 05/06/23 History Cefuroxime [Ceftin] 250 mg PO BID 05/06/23 05/06/23 History Cholecalciferol [Vitamin D3 (25 25 mcg PO DAILY 05/06/23 05/06/23 History Mcg = 1000 Iu)] HYDROcodone/APAP 7.5-325MG [[place] 1 tab PO DAILY PRN 05/06/23 05/06/23 History 7.5-325] Losartan Potassium [Cozaar] 100 mg PO DAILY 05/06/23 05/06/23 History Montelukast Sodium 10 mg PO HS 05/06/23 05/06/23 History Omeprazole [PriLOSEC] 40 mg PO DAILY 05/06/23 05/06/23 History amLODIPine [Norvasc] 5 mg PO BID 05/06/23 05/06/23 History predniSONE [Deltasone] See Taper PO DAILY 05/06/23 05/06/23 History Allergies Allergy/AdvReac Type Severity Reaction Status Date / Time fentanyl Allergy Unknown Verified 05/06/23 12:52 tramadol Allergy Unknown Verified 05/06/23 12:52 Physical Exam Vitals: Vital Signs Temp Pulse Pulse Resp BP BP Pulse Ox 05/07/23 08:00 97.9 F 60 19 155/70 100 05/07/23 03:20 97.5 F L 60 15 136/65 100 05/06/23 23:47 97.6 F 61 18 142/74 98 05/06/23 23:00 53 L 18 142/75 97 05/06/23 22:35 52 L 18 131/74 98 05/06/23 19:55 69 18 122/81 96 05/06/23 17:39 98 05/06/23 17:35 98.3 F 62 18 130/78 97 05/06/23 17:30 126/69 05/06/23 17:00 58 L 20 127/72 100 05/06/23 16:30 60 19 126/88 98 05/06/23 16:00 61 23 124/72 05/06/23 15:30 67 20 123/68 05/06/23 15:00 58 L 23 115/70 05/06/23 14:30 62 6 L 116/67 05/06/23 14:00 89 23 101/70 96 05/06/23 13:35 75 11 L 102/66 98 05/06/23 13:34 80 18 102/66 98 Intake and Output 05/06/23 05/07/23 05/07/23 22:59 06:59 14:59 Intake Total 146.217 57.834 240 Balance 146.217 57.834 240 Intake: Intake, IV Titration 146.217 57.834 Amount Diltiazem 125 mg In 67.833 Sodium Chloride 0.9% 100 ml @ 5 MG/HR 5 mls/hr IV .Q24H [facility] Rx#:[id number] Heparin Sod,Pork in 0.45% 78.384 57.834 NaCl 25,000 unit In 0.45 % NaCl 1 250ml.bag @ 18 UNITS/KG/HR 8.165 mls/hr IV .Q24H [facility] Rx#: [id number] Oral 240 Other: Voiding Method External Catheter External Catheter Results 05/07/23 03:44 05/07/23 03:44 Coagulation 05/06/23 05/07/23 Range/Units 17:52 03:44 APTT 127.0 H* 93.6 H (22.0-30.0) sec CBC 05/07/23 Range/Units 03:44 WBC 1.7 L (3.8-10.6) k/uL RBC 3.81 (3.80-5.40) m/uL Hgb 10.4 L (11.4-16.0) gm/dL Hct 32.3 L (34.0-46.0) % Plt Count 219 (150-450) k/uL Comprehensive Metabolic Panel 05/07/23 Range/Units 03:44 Sodium 137 (137-145) mmol/L Potassium 4.2 (3.5-5.1) mmol/L Chloride 111 H (98-107) mmol/L Carbon Dioxide 17 L (22-30) mmol/L BUN 29 H (7-17) mg/dL Creatinine 0.69 (0.52-1.04) mg/dL Glucose 88 (74-99) mg/dL Calcium 8.2 L (8.4-10.2) mg/dL Current Medications Generic Name Dose Route Start Last Admin Trade Name Freq PRN Reason Stop Dose Admin Acetaminophen 500 mg 05/06/23 13:35 Acetaminophen Tab 500 Mg Tab PO Q6HR PRN Fever and/ or Pain Hydrocodone Bitart/Acetaminophen 1 each 05/06/23 13:35 Hydrocodone/Apap 7.5-325mg 1 Each Tab PO DAILY PRN Pain Albuterol Sulfate 2 puff 05/06/23 13:35 Albuterol Hfa Inhaler INHALATION RT-Q6H PRN Shortness Of Breath Ascorbic Acid 500 mg 05/06/23 13:45 05/07/23 09:17 Ascorbic Acid 500 Mg Tab PO 500 mg BID STEPH[facility] Administration Aspirin 81 mg 05/06/23 21:00 05/06/23 20:42 Aspirin 81 Mg PO 81 mg HS STEPHANIE Administration Atorvastatin Calcium 40 mg 05/06/23 21:00 05/06/23 20:42 Atorvastatin 40 Mg Tab PO 40 mg HS STEPHANIE Administration Azithromycin 500 mg 05/07/23 09:00 05/07/23 09:17 Azithromycin 500 Mg Tab PO 05/11/23 09:01 500 mg DAILY STEPHANIE Administration Protocol Cholecalciferol 25 mcg 05/06/23 13:45 05/07/23 09:17 Cholecalciferol 25 Mcg (1000 Iu) Tablet PO 25 mcg DAILY STEPH[facility]IE Administration Dexamethasone 6 mg 05/07/23 09:00 05/07/23 09:18 Dexamethasone 2 Mg Tab PO 6 mg DAILY STEPHANIE Administration Heparin Sodium (Porcine) 0 unit 05/06/23 09:19 Heparin Sodium 1,000 Un/Ml (10ml Vl) IV PER PROTOCOL PRN Low PTT Protocol Diltiazem HCl 125 mg/ Sodium 125 mls @ 5 mls/hr 05/06/23 07:30 05/07/23 06:30 Chloride IV Not Given .Q24H [facility] 5 MG/HR Heparin Sodium/Sodium Chloride 250 mls @ 8.165 mls/hr 05/06/23 09:30 05/07/23 05:05 25,000 unit/ Sodium Chloride IV 13 units/kg/hr .Q24H [facility] 5.897 mls/hr Titration Protocol 18 UNITS/KG/HR Sodium Chloride 1,000 mls @ 75 mls/hr 05/06/23 09:45 05/06/23 23:01 Saline 0.9% IV Not Given .[id number] [facility] Ceftriaxone Sodium 2 gm/ 50 mls @ 100 mls/hr 05/07/23 09:00 05/07/23 09:17 Sodium Chloride IVPB 05/10/23 09:29 100 mls/hr Q24HR [facility] Administration Protocol Losartan Potassium 100 mg 05/07/23 09:00 05/07/23 09:17 Losartan 50 Mg Tab PO 100 mg DAILY STEPH[facility]IE Administration Miscellaneous Information 1 each 05/06/23 13:39 Pneumonia Protocol Utilized 1 Each Misc PO ONCE PRN Per Protocol Montelukast Sodium 10 mg 05/06/23 21:00 05/06/23 20:42 Montelukast 10 Mg Tab PO 10 mg HS STEPH[facility]IE Administration Naloxone HCl 0.2 mg 05/06/23 09:41 Naloxone 0.4 Mg/Ml 1 Ml Vial IV Q2M PRN Opioid Reversal Pantoprazole Sodium 40 mg 05/06/23 13:45 05/07/23 06:25 Pantoprazole 40 Mg Tablet PO Not Given DAILY@0730 STEPHANIE Intake and Output 05/06/23 05/07/23 05/07/23 22:59 06:59 14:59 Intake Total 146.217 57.834 240 Balance 146.217 57.834 240 Intake: Intake, IV Titration 146.217 57.834 Amount Diltiazem 125 mg In 67.833 Sodium Chloride 0.9% 100 ml @ 5 MG/HR 5 mls/hr IV .Q24H [facility] Rx#:[id number] Heparin Sod,Pork in 0.45% 78.384 57.834 NaCl 25,000 unit In 0.45 % NaCl 1 250ml.bag @ 18 UNITS/KG/HR 8.165 mls/hr IV .Q24H [facility] Rx#: [id number] Oral 240 Other: Voiding Method External Catheter External Catheter 05/07/23 03:44 05/07/23 03:44
[2023-05-07] MEDS: APIXABAN 5 MG TAB PO SCH ×2 (11:25→21:46)
[2023-05-07] MEDS: ALBUTEROL HFA INHALER INHALATION SCH ×3 (11:37→21:13)
--- NOTE | 2023-05-07 11:50 | P.PN ---
Subjective Progress Note Date: 05/07/23 * 82-year-old patient with past medical history significant for COPD, history of pulmonary hypertension, recently diagnosed with Covid presents to the emergency department with complains of fatigue, generalized weakness at the time of presentation in ER patient was noted to be short of breath had episode of nausea patient was noted to have new onset atrial fibrillation and was noted to have rapid ventricular response. Workup initiated in ER included a chest x-ray which showed right lower lobe pneumonia patient had CT chest done which showed moderate to severe emphysema patchy density right lower lobe concerning for pneumonia. CT finding concern for acute on chronic pulmonary embolism. * EKG obtained in ER showed atrial fibrillation with heart rate of 134, no ST segment elevation was noted patient did have ST segment depression in lateral leads. * At the time of presentation in ER patient was given 2 L of fluid bolus, patient started on IV heparin and Cardizem drip with consultation from cardi ology as well as pulmonary medicine * Patient primary care physician was contacted by ED team and given a sign out on further follow-up, [facility] took over since covering Dr. Bond. * History was obtained from Daughter as well on the phone, ever since discharge from [facility] patient has been very weak * 05/07/23: Patient seen and evaluated bedside, patient continued to have cough, CBC reviewed showed reticulocyte count 219, WBC 1.7, patient IV heparin drip will be discontinued and transition to Eliquis, patient will need physical therapy occupational therapy evaluation followed by cardiology and pulmonary medicine, follow-up chest x-ray obtained showed right basilar opacity, changes consistent with COPD REVIEW OF SYSTEMS: Fatigue, generalized weakness, shortness of breath CONSTITUTIONAL: No fever, no malaise, HEENT: No recent visual problems or hearing problems. Denied any sore throat. CARDIOVASCULAR: No chest pain, orthopnea, PND, no palpitations, no syncope. PULMONARY: Fatigue, generalized weakness, shortness of breath GASTROINTESTINAL: No diarrhea, no nausea, no vomiting, no abdominal pain. NEUROLOGICAL: No headaches, no weakness, no numbness. HEMATOLOGICAL: Denies any bleeding or petechiae. GENITOURINARY: Denies any burning micturition, frequency, or urgency. MUSCULOSKELETAL/RHEUMATOLOGICAL: Denies any joint pain, swelling, or any muscle pain. ENDOCRINE: Denies any polyuria or polydipsia. PHYSICAL EXAMINATION: GENERAL: The patient is alert and oriented x3, not in any acute distress. Well developed, well nourished. Nasal cannula in place HEENT: Pupils are round and equally reacting to light. EOMI. CARDIOVASCULAR: S1 and S2 present. Irregular rhythm tachycardia noted PULMONARY: Chest is clear to auscultation, no wheezing or crackles. ABDOMEN: Soft, nontender, nondistended, normoactive bowel sounds. No palpable organomegaly. MUSCULOSKELETAL: No joint swelling or deformity. EXTREMITIES: No cyanosis, clubbing, or pedal edema. NEUROLOGICAL: Gross neurological examination did not reveal any focal deficits. SKIN: No rashes. Objective - Vital Signs Vital signs: Vital Signs Temp 97.9 F 05/07/23 08:00 Pulse 60 05/07/23 08:00 Resp 19 05/07/23 08:00 BP 155/70 05/07/23 08:00 Pulse Ox 100 05/07/23 08:00 FiO2 Intake & Output 05/06/23 05/07/23 05/07/23 18:59 06:59 18:59 Intake Total 9.707 204.051 240 Balance 9.707 204.051 240 Weight 45.359 kg Intake: Intake, IV Titration 9.707 204.051 Amount Diltiazem 125 mg In 67.833 Sodium Chloride 0.9% 100 ml @ 5 MG/HR 5 mls/hr IV .Q24H TSEPHANIE Rx#:[id number] Heparin Sod,Pork in 0.45% 9.707 NaCl 25,000 unit In 0.45 % NaCl 1 250ml.bag @ 12 UNITS/KG/HR 5.443 mls/hr IV .Q24H STEPHANIE Rx#: [id number] Heparin Sod,Pork in 0.45% 136.218 NaCl 25,000 unit In 0.45 % NaCl 1 250ml.bag @ 18 UNITS/KG/HR 8.165 mls/hr IV .Q24H STEPHANIE Rx#: [id number] Oral 240 Other: Voiding Method External Catheter External Catheter - Labs CBC & Chem 7: 05/07/23 03:44 05/07/23 03:44 Labs: Abnormal Lab Results - Last 24 Hours (Table) 05/06/23 05/07/23 05/07/23 Range/Units 17:52 03:44 03:44 WBC 1.7 L (3.8-10.6) k/uL Hgb 10.4 L (11.4-16.0) gm/dL Hct 32.3 L (34.0-46.0) % RDW 16.2 H (11.5-15.5) % APTT 127.0 H* (22.0-30.0) sec Chloride 111 H (98-107) mmol/L Carbon Dioxide 17 L (22-30) mmol/L BUN 29 H (7-17) mg/dL Calcium 8.2 L (8.4-10.2) mg/dL C-Reactive Protein 12.0 H (<1.0) mg/dL 05/07/23 Range/Units 03:44 WBC (3.8-10.6) k/uL Hgb (11.4-16.0) gm/dL Hct (34.0-46.0) % RDW (11.5-15.5) % APTT 93.6 H (22.0-30.0) sec Chloride (98-107) mmol/L Carbon Dioxide (22-30) mmol/L BUN (7-17) mg/dL Calcium (8.4-10.2) mg/dL C-Reactive Protein (<1.0) mg/dL Assessment and Plan Assessment: Assessment and plan * Acute on chronic pulmonary embolism * Acute DVT right femoral vein, popliteal vein * New onset atrial flutter fibrillation with rapid ventricular response * History of COPD * Recent COVID-19 infection * Right lower lobe pneumonia * In regards to pulmonary embolism, patient started on IV heparin, consultation obtained from pulmonary medicine and cardiology, echocardiogram ordered, venous ultrasound lower extremity, reviewed, transition from IV heparin to Eliquis starter pack * Regards to atrial fibrillation, Cardizem drip weaned off, continue patient on metoprolol and Eliquis * in regards to history of COPD continue patient on bronchodilator protocol , continue prednisone and Singulair * In regards to right lower lobe pneumonia continue patient on Rocephin and azithromycin Day 2 , urine Legionella ordered, pulmonary medicine consulted * Residual therapy occupational therapy consulted * CODE STATUS is full code Time with Patient: Greater than 30
[2023-05-07] MEDS: SODIUM CHLORIDE 0.9% 1,000 ML IV SCH (13:35)
[2023-05-07] MEDS: HEPARIN SOD,PORK IN 0.45% NACL 25,000 UNIT in 0.45% NACL 1 250ML.BAG IV SCH (14:05)
--- NOTE | 2023-05-07 15:11 | P.PN ---
Subjective Progress Note Date: 05/07/23 Principal diagnosis: Acute hypoxic respiratory failure with acute right lower lobe pneumonia and acute COVID-19 infection as well as acute on chronic pulmonary embolism and acute deep vein thrombosis This is an 82-year-old female with a known history of chronic obstructive pulmon freddie disease, pulmonary hypertension, former smoker on home oxygen who was recently diagnosed with CoVID and had been recovering at home with home health care nurses. Last evening she became very fatigued and weak she presented to the emergency room this morning with headache nausea shortness of breath and weakness. She also was having fevers. EKG revealed atrial fibrillation with a rapid ventricular response and some ST and T wave abnormalities. X-ray revealed chronic changes at the lung bases with a developing right lower lobe infiltrate. CT angiogram revealed acute on chronic pulmonary embolism. Right lower lobe developing pneumonia difficult to exclude. White count 6.8. Hemoglobin 12.3. Platelets 263. Lymphocytes 0.7. D-dimer 2.74. Sodium 137. Potassium 4.2. Bicarb 22. BUN 27. Creatinine 0.91. Troponin 0.047. TSH less than 0.015. COVID-19 screen positive. She is seen today in consultation in the emergency department. She is currently resting on stretcher. Awake and alert in no acute distress. She is maintaining O2 saturations in the 90s on 4 L/m per nasal ca nnula. She is currently in sinus bradycardia. She had been initiated on a heparin drip. Cardizem drip at 5 mg per hour. Currently afebrile. Patient was seen and examined today on 05/07/2023, patient was admitted with acute COVID-19 infection, DVT, pulmonary embolism, and atrial fibrillation with RVR, and possible right lower lobe pneumonia. Possibly COVID-19 pneumonia or bacterial pneumonia superimposed on COVID-19 infection. At any rate patient is doing well, patient was seen by cardiology and her heparin was discontinued, she is now on eliquis. Echocardiogram is pending, patient will be started on metoprolol as per cardiology, patient is now off Cardizem. Remains empirically on antibiotics in the form of Rocephin and Zithromax, pro-calcitonin level is pending. Medically the patient is improving, and responding well to present treatment. Objective - Vital Signs Vital signs: Vital Signs Temp 97.9 F 05/07/23 08:00 Pulse 84 05/07/23 12:00 Resp 18 05/07/23 12:00 BP 166/76 05/07/23 12:00 Pulse Ox 93 L 05/07/23 12:00 FiO2 Intake & Output 05/06/23 05/07/23 05/07/23 18:59 06:59 18:59 Intake Total 9.707 204.051 240 Balance 9.707 204.051 240 Weight 45.359 kg Intake: Intake, IV Titration 9.707 204.051 Amount Diltiazem 125 mg In 67.833 Sodium Chloride 0.9% 100 ml @ 5 MG/HR 5 mls/hr IV .Q24H STE[facility]IE Rx#:[id number] Heparin Sod,Pork in 0.45% 9.707 NaCl 25,000 unit In 0.45 % NaCl 1 250ml.bag @ 12 UNITS/KG/HR 5.443 mls/hr IV .Q24H STEPHANIE Rx#: [id number] Heparin Sod,Pork in 0.45% 136.218 NaCl 25,000 unit In 0.45 % NaCl 1 250ml.bag @ 18 UNITS/KG/HR 8.165 mls/hr IV .Q24H STEPHANIE Rx#: [id number] Oral 240 Other: Voiding Method External Catheter External Catheter - Exam Physical Exam: Revealed an 82-year-old female in no distress, on 4 L nasal cannula with O2 saturation ranging between 93 up to 100% HEENT:[Neck is supple.] [No neck masses.] [No thyromegaly.] [No JVD.] Chest: [Minimal crackles at the right base. Cardiac Exam: Irregular irregular rhythm [Normal S1 and S2, no S3 gallop, no murmur.] Abdomen: [Soft, nontender, no megaly, no rebound, no guarding, normal bowel sounds.] Extremities: [No clubbing, no edema, no cyanosis.] Neurological Exam: [No focal neurologic deficit. Alert and oriented 3] Psychiatric: Normal mood affect and normal mental status examination - Labs CBC & Chem 7: 05/07/23 03:44 05/07/23 03:44 Labs: Abnormal Lab Results - Last 24 Hours (Table) 05/06/23 05/07/23 05/07/23 Range/Units 17:52 03:44 03:44 WBC 1.7 L (3.8-10.6) k/uL Hgb 10.4 L (11.4-16.0) gm/dL Hct 32.3 L (34.0-46.0) % RDW 16.2 H (11.5-15.5) % APTT 127.0 H* (22.0-30.0) sec Chloride 111 H (98-107) mmol/L Carbon Dioxide 17 L (22-30) mmol/L BUN 29 H (7-17) mg/dL Calcium 8.2 L (8.4-10.2) mg/dL C-Reactive Protein 12.0 H (<1.0) mg/dL Free T4 (0.78-2.19) ng/dL 05/07/23 05/07/23 Range/Units 03:44 03:44 WBC (3.8-10.6) k/uL Hgb (11.4-16.0) gm/dL Hct (34.0-46.0) % RDW (11.5-15.5) % APTT 93.6 H (22.0-30.0) sec Chloride (98-107) mmol/L Carbon Dioxide (22-30) mmol/L BUN (7-17) mg/dL Calcium (8.4-10.2) mg/dL C-Reactive Protein (<1.0) mg/dL Free T4 2.30 H (0.78-2.19) ng/dL Assessment and Plan Assessment: Impression: Acute hypoxic respiratory failure Acute on chronic pulmonary embolism Acute deep vein thrombosis New-onset atrial fibrillation with RVR Suspect acute community acquired right lower lobe pneumonia superimposed concierge today. Infection or possibly COVID-19 pneumonia Recent history of COVID-19 infection Recommendation: Heparin was transitioned to eliquis Continue metoprolol as per cardiology Continue Rocephin and Zithromax Pro calcitonin level is pending and if normal patient could be taken off antibiotics Urine Legionella antigen is also pending Will continue to follow for now Time with Patient: Less than 30
[2023-05-07 16:37] LABS: Glucose,Whole Blood 205 mg/dL (70-110)
[2023-05-07 20:33] LABS: Glucose,Whole Blood 243 mg/dL (70-110)
[2023-05-07] MEDS: ASPIRIN 81 MG PO SCH (21:46)
[2023-05-07] MEDS: MONTELUKAST 10 MG TAB PO SCH (21:46)
[2023-05-07] MEDS: METOPROLOL TARTRATE 25 MG TAB PO SCH (21:47)
[2023-05-07] MEDS: ATORVASTATIN 40 MG TAB PO SCH (21:47)
[2023-05-08] MEDS: SODIUM CHLORIDE 0.9% 1,000 ML IV SCH ×2 (05:41→21:49)
[2023-05-08 06:01] LABS: Glucose,Whole Blood 99 mg/dL (70-110)
[2023-05-08] MEDS: PANTOPRAZOLE 40 MG TABLET PO SCH ×2 (06:30→06:31)
[2023-05-08] MEDS: AZITHROMYCIN 500 MG TAB PO SCH (08:48)
[2023-05-08] MEDS: dexAMETHasone 2 MG TAB PO SCH (08:48)
[2023-05-08] MEDS: CHOLECALCIFEROL 25 MCG (1000 IU) TABLET PO SCH (08:48)
[2023-05-08] MEDS: APIXABAN 5 MG TAB PO SCH ×2 (08:48→21:01)
[2023-05-08] MEDS: LOSARTAN 50 MG TAB PO SCH (08:48)
[2023-05-08] MEDS: ASCORBIC ACID 500 MG TAB PO SCH ×2 (08:48→21:02)
[2023-05-08] MEDS: METOPROLOL TARTRATE 25 MG TAB PO SCH ×2 (08:51→21:02)
[2023-05-08] MEDS: ALBUTEROL HFA INHALER INHALATION SCH ×4 (09:00→20:41)
[2023-05-08 11:19] LABS: Anisocytosis Slight; HCT 38.1 % (34.0-46.0); HGB 11.9 gm/dL (11.4-16.0); Hypochromasia Slight; MCHC 31.1 g/dL (31.0-37.0); MCV 83.5 fL (80.0-100.0); Mean Platelet Volume 8.6; Platelet Count 287 k/uL (150-450); RBC 4.56 m/uL (3.80-5.40); RDW 16.1 % (11.5-15.5); WBC 13.3 k/uL (3.8-10.6)
[2023-05-08 11:27] VITALS: BMI 17.2
[2023-05-08 11:31] LABS: African American GFR (CKD) >90 (>60 ml/min/1.73 sqM); Anion Gap 11 mmol/L; Blood Urea Nitrogen 20 mg/dL (7-17); Calcium 9.1 mg/dL (8.4-10.2); Carbon Dioxide 20 mmol/L (22-30); Chloride 104 mmol/L (98-107); Glucose 90 mg/dL (74-99); Non-African American GFR(CKD) 88 (>60 ml/min/1.73 sqM); Sodium 135 mmol/L (137-145)
[2023-05-08 11:45] LABS: Glucose,Whole Blood 100 mg/dL (70-110)
--- NOTE | 2023-05-08 12:29 | P.PN ---
Subjective Progress Note Date: 05/08/23 Principal diagnosis: Respiratory failure. Acute hypoxic respiratory failure with acute right lower lobe pneumonia and acute COVID-19 infection as well as acute on chronic pulmonary embolism and acute deep vein thrombosis This is an 82-year-old female with a known history of chronic obstructive pulmonary disease, pulmonary hypertension, former smoker on home oxygen who was recently diagnosed with CoVID and had been recovering at home with home health care nurses. Last evening she became very fatigued and weak she presented to the emergency room this morning with headache nausea shortness of breath and weakness. She also was having fevers. EKG revealed atrial fibrillation with a rapid ventricular response and some ST and T wave abnormalities. X-ray revealed chronic changes at the lung bases with a developing right lower lobe infiltrate. CT angiogram revealed acute on chronic pulmonary embolism. Right lower lobe developing pneumonia difficult to exclude. White count 6.8. Hemoglobin 12.3. Platelets 263. Lymphocytes 0.7. D-dimer 2.74. Sodium 137. Potassium 4.2. Bicarb 22. BUN 27. Creatinine 0.91. Troponin 0.047. TSH less than 0.015. COVID-19 screen positive. She is seen today in consultation in the emergency department. She is currently resting on stretcher. Awake and alert in no acute distress. She is maintaining O2 saturations in the 90s on 4 L/m per nasal cannula. She is currently in sinus bradycardia. She had been initiated on a he blanca drip. Cardizem drip at 5 mg per hour. Currently afebrile. Patient was seen and examined today on 05/07/2023, patient was admitted with acute COVID-19 infection, DVT, pulmonary embolism, and atrial fibrillation with RVR, and possible right lower lobe pneumonia. Possibly COVID-19 pneumonia or bacterial pneumonia superimposed on COVID-19 infection. At any rate patient is doing well, patient was seen by cardiology and her heparin was discontinued, she is now on eliquis. Echocardiogram is pending, patient will be started on metoprolol as per cardiology, patient is now off Cardizem. Remains empirically on antibiotics in the form of Rocephin and Zithromax, pro-calcitonin level is pending. Medically the patient is improving, and responding well to present treatment. Progress note dated 05/08/2023. 82-year-old female admitted with a diagnosis of acute coronavirus infection, DVT, pulmonary embolism, atrial fibrillation with RVR, and possible pneumonia, right lower lobe. The patient is seen today in room 362. She continues on oxygen at 4 L. The patient's getting saline at 75 mL an hour. The patient was also discovered to have a right lower extremity DVT. Current labs include a white count of 13.3, hemoglobin 11.9, hematocrit 38.1, and a platelet count of 287,000. Sodium 135, potassium 4, chlorides 104, CO2 20, BUN 20, creatinine 0.58. Chest x-ray from May 07 shows a right basilar infiltrate, and changes of COPD. Objective - Vital Signs Vital signs: Vital Signs Temp 98.7 F 05/08/23 12:00 Pulse 62 05/08/23 12:00 Resp 24 05/08/23 12:00 BP 175/90 05/08/23 12:00 Pulse Ox 91 L 05/08/23 12:00 FiO2 Intake & Output 05/07/23 05/08/23 05/08/23 18:59 06:59 18:59 Intake Total 476 Output Total 350 900 800 Balance 126 -900 -800 Weight 45.359 kg Intake: Oral 476 Output: Urine 350 900 800 Other: Voiding Method External Catheter External Catheter External Catheter # Voids 1 - Exam No acute distress, oriented 3. Currently on 4 L of oxygen by nasal cannula. HEENT examination is grossly unremarkable. Mucous membranes are moist. No oral lesions. Neck supple. Full range of motion. No adenopathy thyromegaly or neck vein distention. Cardiovascular examination reveals regular rhythm rate. S1-S2 normal. No S3 or S4. No discernible murmur noted. Heart sounds are distant. Heart rate 62 bpm. Lungs reveal right basilar crackles. No wheezes. No rhonchi. Saturations are 97% on 4 L. Breath sounds are otherwise equal. Abdomen soft bowel sounds are heard. No masses or tenderness. Extremities are intact. No cyanosis clubbing or edema. Skin is without rash or lesion. Neurologic examination is brief but nonfocal. - Labs CBC & Chem 7: 05/08/23 10:52 05/08/23 10:52 Labs: Abnormal Lab Results - Last 24 Hours (Table) 05/07/23 05/07/23 05/07/23 Range/Units 03:44 03:44 16:35 WBC (3.8-10.6) k/uL RDW (11.5-15.5) % Sodium (137-145) mmol/L Carbon Dioxide (22-30) mmol/L BUN (7-17) mg/dL POC Glucose (mg/dL) 205 H (70-110) mg/dL Procalcitonin 0.29 H (0.02-0.09) ng/mL Free T4 2.30 H (0.78-2.19) ng/dL 05/07/23 05/08/23 05/08/23 Range/Units 20:31 10:52 10:52 WBC 13.3 H (3.8-10.6) k/uL RDW 16.1 H (11.5-15.5) % Sodium 135 L (137-145) mmol/L Carbon Dioxide 20 L (22-30) mmol/L BUN 20 H (7-17) mg/dL POC Glucose (mg/dL) 243 H (70-110) mg/dL Procalcitonin (0.02-0.09) ng/mL Free T4 (0.78-2.19) ng/dL Microbiology - Last 24 Hours (Table) 05/06/23 17:52 Blood Culture - Preliminary Blood Assessment and Plan Assessment: Acute hypoxemic respiratory failure, multifactorial. Acute on chronic pulmonary embolism. Acute deep vein thrombosis. Atrial fibrillation, new onset with rapid ventricular response. Community-acquired pneumonia, right lower lobe. Recent coronavirus infection. Plan: Plan dated 05/08/2023. The patient was transitioned to a factor X a inhibitor, from heparin. The patient continues on antibiotics in the form of ceftriaxone, and azithromycin. Additional recommendations and suggestions are forthcoming. Pro-calcitonin level is elevated at 0.29. Labs, x-rays, and medications are reviewed. We will continue to follow the patient, and make recommendations along the way. The patient's overall prognosis remains very guarded. Time with Patient: Less than 30
--- NOTE | 2023-05-08 14:09 | CA ---
Transthoracic Echo Report Name: Estelita Carlin Age: 82 Gender: F : 1940 Exam Date: 05/08/2023 12:40 Exam Location: [facility] Ht (in): 64 Wt (lb): 100 Ordering Physician: Hay Hernandez MD Attending/Referring Phys: Jumbo Operator Radha Thakkar [facility] Procedure CPT: Indications: Pulmonary Embolism Cardiac Hx: Technical Quality: Technically difficult study Contrast 1: Total Dose (mL): Contrast 2: Total Dose (mL): MEASUREMENTS (Male / Female) Normal Values DOPPLER Mitral E Point Velocity 45.9 cm/s Mitral A Point Velocity 89.1 cm/s Mitral E to A Ratio 0.5 MV Deceleration Time 197.7 ms LV E' Lateral Velocity 6.7 cm/s Mitral E to LV E' Lateral Ratio 6.9 LV E' Septal Velocity 4.5 cm/s Mitral E to LV E' Septal Ratio 10.1 TR Peak Velocity 374.2 cm/s TR Peak Gradient 56.0 mmHg Right Atrial Pressure 8.0 mmHg Pulmonary Artery Systolic Pressu 64.0 mmHg Right Ventricular Systolic Press 64.0 mmHg FINDINGS Left Ventricle Normal Left ventricular size, wall thickness, systolic function with no obvious regional wall motion abnormalities. Left ventricular ejection fraction is estimated at 55-60%. Right Ventricle Mild right ventricular dilatation. Mildly reduced right ventricular global systolic function. Severe pulmonary hypertension. Right Atrium Left Atrium Mitral Valve Aortic Valve Tricuspid Valve Structurally normal tricuspid valve. Mild tricuspid regurgitation. Pulmonic Valve Pericardium Minimal pericardial effusion (normal variant). Aorta CONCLUSIONS Limited study, PT is COVID+ Left ventricular ejection fraction 55-60% Mild right ventricular dilation Mild right ventricular hypokinesis RVSP 64 Mild tricuspid regurgitation Previewed by: Dr. Andrea Gupta DO (Electronically Signed) Final Date: 08 May 2023 14:08
[2023-05-08 16:50] LABS: Glucose,Whole Blood 130 mg/dL (70-110)
[2023-05-08 20:44] LABS: Glucose,Whole Blood 141 mg/dL (70-110)
[2023-05-08] MEDS: MONTELUKAST 10 MG TAB PO SCH (21:01)
--- NOTE | 2023-05-08 21:01 | PN ---
PROGRESS NOTE SUBJECTIVE: An 82-year-old lady that is admitted to hospital with coronavirus infection and severe COPD exacerbation. Cardiology had seen the patient because of an episode of atrial fibrillation, thought to be secondary to the pulmonary embolism. The patient remains in sinus rhythm, short of breath at rest. OBJECTIVE: VITAL SIGNS: On exam, heart rate is 74 beats per minute, blood pressure is 160/72, respiratory rate is 28. CHEST: Reveals diminished air entry with rhonchi. HEART: Reveals first and second heart sounds. No murmur. ABDOMEN: Soft. EXTREMITIES: Exam of extremities did reveal mild edema. The patient appears in moderate respiratory distress. ASSESSMENT: 1. Paroxysmal atrial fibrillation. 2. History of pulmonary embolism. 3. Chronic obstructive pulmonary disease exacerbation. PLAN: I reviewed and will continue current medications. The patient's elevated blood pressures may be related to the respiratory distress. MMODL / IJN: [id number] /
[2023-05-08] MEDS: ATORVASTATIN 40 MG TAB PO SCH (21:02)
[2023-05-08] MEDS: ASPIRIN 81 MG PO SCH (21:02)
[2023-05-09 06:08] LABS: Glucose,Whole Blood 103 mg/dL (70-110)
[2023-05-09] MEDS: PANTOPRAZOLE 40 MG TABLET PO SCH (06:20)
[2023-05-09] MEDS: SODIUM CHLORIDE 0.9% 1,000 ML IV SCH ×2 (06:21→17:30)
[2023-05-09] MEDS: METOPROLOL TARTRATE 25 MG TAB PO SCH ×2 (08:40→20:42)
[2023-05-09] MEDS: AZITHROMYCIN 500 MG TAB PO SCH (08:40)
[2023-05-09] MEDS: APIXABAN 5 MG TAB PO SCH ×2 (08:40→20:42)
[2023-05-09] MEDS: CHOLECALCIFEROL 25 MCG (1000 IU) TABLET PO SCH (08:40)
[2023-05-09] MEDS: LOSARTAN 50 MG TAB PO SCH (08:40)
[2023-05-09] MEDS: ASCORBIC ACID 500 MG TAB PO SCH ×2 (08:40→20:42)
[2023-05-09] MEDS: dexAMETHasone 2 MG TAB PO SCH (08:40)
[2023-05-09] MEDS: ALBUTEROL HFA INHALER INHALATION SCH ×4 (09:48→21:41)
--- NOTE | 2023-05-09 11:42 | P.PN ---
Subjective Progress Note Date: 05/09/23 Principal diagnosis: Respiratory failure. Acute hypoxic respiratory failure with acute right lower lobe pneumonia and acute COVID-19 infection as well as acute on chronic pulmonary embolism and acute deep vein thrombosis This is an 82-year-old female with a known history of chronic obstructive pulmonary disease, pulmonary hypertension, former smoker on home oxygen who was recently diagnosed with CoVID and had been recovering at home with home health care nurses. Last evening she became very fatigued and weak she presented to the emergency room this morning with headache nausea shortness of breath and weakness. She also was having fevers. EKG revealed atrial fibrillation with a rapid ventricular response and some ST and T wave abnormalities. X-ray revealed chronic changes at the lung bases with a developing right lower lobe infiltrate. CT angiogram revealed acute on chronic pulmonary embolism. Right lower lobe developing pneumonia difficult to exclude. White count 6.8. Hemoglobin 12.3. Platelets 263. Lymphocytes 0.7. D-dimer 2.74. Sodium 137. Potassium 4.2. Bicarb 22. BUN 27. Creatinine 0.91. Troponin 0.047. TSH less than 0.015. COVID-19 screen positive. She is seen today in consultation in the emergency department. She is currently resting on stretcher. Awake and alert in no acute distress. She is maintaining O2 saturations in the 90s on 4 L/m per nasal cannula. She is currently in sinus bradycardia. She had been initiated on a he blanca drip. Cardizem drip at 5 mg per hour. Currently afebrile. Patient was seen and examined today on 05/07/2023, patient was admitted with acute COVID-19 infection, DVT, pulmonary embolism, and atrial fibrillation with RVR, and possible right lower lobe pneumonia. Possibly COVID-19 pneumonia or bacterial pneumonia superimposed on COVID-19 infection. At any rate patient is doing well, patient was seen by cardiology and her heparin was discontinued, she is now on eliquis. Echocardiogram is pending, patient will be started on metoprolol as per cardiology, patient is now off Cardizem. Remains empirically on antibiotics in the form of Rocephin and Zithromax, pro-calcitonin level is pending. Medically the patient is improving, and responding well to present treatment. Progress note dated 05/08/2023. 82-year-old female admitted with a diagnosis of acute coronavirus infection, DVT, pulmonary embolism, atrial fibrillation with RVR, and possible pneumonia, right lower lobe. The patient is seen today in room 362. She continues on oxygen at 4 L. The patient's getting saline at 75 mL an hour. The patient was also discovered to have a right lower extremity DVT. Current labs include a white count of 13.3, hemoglobin 11.9, hematocrit 38.1, and a platelet count of 287,000. Sodium 135, potassium 4, chlorides 104, CO2 20, BUN 20, creatinine 0.58. Chest x-ray from May 07 shows a right basilar infiltrate, and changes of COPD. Progress note dated 05/09/2023. Female admitted with a diagnosis of acute coronavirus infection, deep vein thrombosis, pulmonary embolism, atrial fibrillation/RVR, and possible right lower lobe pneumonia. The patient is seen today in room 362. Continues on oxygen at 4 L. Saturations are 96%. The patient is not receiving any IV fluids. Chest x-ray portable, is ordered for tomorrow. The patient is a DO NOT RESUSCITATE patient. No new labs today other than a glucose of 103. Labs from yesterday have been reviewed. Objective - Vital Signs Vital signs: Vital Signs Temp 97.8 F 05/09/23 08:00 Pulse 72 05/09/23 08:00 Resp 20 05/09/23 08:00 BP 138/74 05/09/23 08:00 Pulse Ox 96 05/09/23 09:48 FiO2 Intake & Output 05/08/23 05/09/23 05/09/23 18:59 06:59 18:59 Intake Total 180 250 Output Total 800 650 400 Balance -620 -650 -150 Weight 45.359 kg Intake: IV 10 Invasive Line 2 10 Oral 180 240 Output: Urine 800 650 400 Other: Voiding Method External Catheter External Catheter External Catheter # Voids 1 # Bowel Movements 1 - Exam No acute distress, oriented 3. Currently on 4 L of oxygen by nasal cannula. HEENT examination is grossly unremarkable. Mucous membranes are moist. No oral lesions. Neck supple. Full range of motion. No adenopathy thyromegaly or neck vein distention. Cardiovascular examination reveals regular rhythm rate. S1-S2 normal. No S3 or S4. No discernible murmur noted. Heart sounds are distant. Heart rate 72 bpm. Lungs reveal right basilar crackles. No wheezes. No rhonchi. Saturations are 96 % on 4 L. Breath sounds are otherwise equal. Abdomen soft bowel sounds are heard. No masses or tenderness. Extremities are intact. No cyanosis clubbing or edema. Skin is without rash or lesion. Neurologic examination is brief but nonfocal. - Labs CBC & Chem 7: 05/08/23 10:52 05/08/23 10:52 Labs: Abnormal Lab Results - Last 24 Hours (Table) 05/08/23 05/08/23 Range/Units 16:47 20:42 POC Glucose (mg/dL) 130 H 141 H (70-110) mg/dL Microbiology - Last 24 Hours (Table) 05/06/23 17:52 Blood Culture - Preliminary Blood Assessment and Plan Assessment: Acute hypoxemic respiratory failure, multifactorial. Acute on chronic pulmonary embolism. Acute deep vein thrombosis. Atrial fibrillation, new onset with rapid ventricular response. Community-acquired pneumonia, right lower lobe. Recent coronavirus infection. Plan: Plan dated 05/08/2023. The patient was transitioned to a factor X a inhibitor, from heparin. The patient continues on antibiotics in the form of ceftriaxone, and azithromycin. Additional recommendations and suggestions are forthcoming. Pro-calcitonin level is elevated at 0.29. Labs, x-rays, and medications are reviewed. We will continue to follow the patient, and make recommendations along the way. The patient's overall prognosis remains very guarded. Plan dated 05/09/2023. The patient is seen today in room 362. She continues on oxygen at 4 L. Labs, x-rays, and medications are reviewed. The patient continues on azithromycin, and Rocephin. In addition, the patient is getting vitamin C, vitamin D3, and zinc. The patient is also getting Decadron, 6 mg daily. We will continue to follow, and make recommendations along the way. The patient's overall prognosis remains guarded. The patient is a DO NOT RESUSCITATE patient. We will continue to follow make recommendations, where appropriate. Time with Patient: Less than 30
[2023-05-09 11:46] LABS: Glucose,Whole Blood 102 mg/dL (70-110)
--- NOTE | 2023-05-09 14:42 | CDI ---
Documentation Clarification Form Date: 05/09/2023 02:01:17 PM From: Shannan Mcdermott Phone: [phone] Admit Date: 05/06/2023 09:47:00 AM Patient Name: Estelita Carlin Visit Number: [id number] Discharge Date: ATTENTION: The Clinical Documentation Specialists (CDI) and [facility] Coding Staff appreciate your assistance in clarifying documentation. Please respond to the clarification below the line at the bottom and electronically sign. The CDI & [facility] Coding staff will review the response and follow-up if needed. Please note: Queries are made part of the Legal Health Record. If you have any questions, please contact the author of this message via ITS. Dr. Brittni Gilbert There is documentation of Recent COVID 19 infection documented in the H&P, 05/06. Additional clarification is requested. History/Risk Factors: 82 year old female presents to the ED fatigue, generalized weakness, shortness of breath and episode of nausea. Medical history: Recent COVID, COPD, Pulmonary HTN and Emphysema. H&P, 05/06. Clinical Indicators: Admitting Diagnosis, H&P, 05/06: Acute on chronic pulmonary embolism, New onset atrial flutter Fibrillation with RVR; Recent COVID 19 infection and Right lower lobe pneumonia. VSS, 05/06: B/P 102/63; HR 135; Temp 97.6 F Oral; RR 18; SpO2 92% 3L nasal cannula Labs, 05/06: Wbc 6.8, Lymphocytes 0.7, Ddimer 2.74, CRP 12.0; COVID 19 detected A CXR, 05/06: Chronic increased markings at the lung bases although developing right lower lobe infiltrate is difficult to. CTA, 05/06: Findings suggestive of acute on chronic pulmonary embolism. Right lower lobe developing pneumonia is difficult to exclude. Treatment: 05/06 0.9NS 2L IV bolus, Vitamin C PO; Vitamin D3; Solumedrol IV x 1; 05/07 Hexadrol po daily; Ceftriaxone IVPB Q24HR x 4 doses; Zithromax po daily x 5 doses. Can you please clarify the current status of the COVID 19 Infection? [X ] Covid 19 is not a current infection, and the stated condition is a residual effect / sequelae of Covid -19 [ ] Covid 19 continues to be a current and active infection, and the stated condition is a continuation of its symptoms [ ] Other explanation of clinical findings please specify [ ] Clinically unable to determine the current status of the patients Covid 19 infection [ ] Unable to determine (Template Last Revised: August 2020) MTDD
[2023-05-09 16:40] LABS: Glucose,Whole Blood 151 mg/dL (70-110)
--- NOTE | 2023-05-09 18:45 | P.PN ---
Subjective Progress Note Date: 05/09/23 The patient is a pleasant 82-year-old female patient with a past medical history significant for hypertension and dyslipidemia and chronic obstructive pulmonary disease and recently diagnosed of COVID 19 infection she was recovering at home. She presented to the emergency department complaining of shortness of breath for the last 24 hours with no associated chest pain or chest discomfort and no dizziness or lightheadedness and no feeling of heart racing or fluttering and no recent she has been experiencing also cough with no sputum production and no fever or chills. She was diagnosed was left lower extremity DVT and also pulmonary embolism. She was started on heparin IV. After that she went into atrial fibrillation with RVR and started on Cardizem drip and subsequently converted to normal sinus mechanism. No history of atrial fibrillation before. The patient currently doesn't follow-up with the cattle inspector disease or congestive heart failure or cardiac arrhythmia in a sinus mechanism. She is off Cardizem drip. She still on heparin IV the chest x-ray showed chronic obstructive pulmonary disease. The patient EKG showed A. fib with RVR but subsequent EKG showed sinus mechanism with short [place] interval but no preexcitation. Computed tomography scan of the chest and lower extremity venous duplex study reviewed. The blood work is unremarkable. The examination is remarkable for bilateral expiratory wheezing and regular rhythm with a systolic murmur right and left upper sternal border 05/09/23 Patient is doing well from cardiac vessel standpoint. Patient's heart rate are better controlled. She continues to be in atrial fibrillation Assessment Atrial fibrillation with RVR in the setting of pulmonary embolism which is likely triggered the A. fib Recent diagnosis of DVT/PE in the setting of Covid 19 infection Recent diagnosis of Covid 19 infection Chronic hypoxic respiratory failure Hypertension and dyslipidemia Plan Continue anticoagulation. Resume metoprolol Obtain an echocardiogram Objective - Vital Signs Vital signs: Vital Signs Temp 97.9 F 05/09/23 16:57 Pulse 72 05/09/23 16:57 Resp 22 05/09/23 16:57 BP 146/74 05/09/23 16:57 Pulse Ox 94 L 05/09/23 16:57 FiO2 Intake & Output 05/08/23 05/09/23 05/09/23 18:59 06:59 18:59 Intake Total 180 668 Output Total 800 650 400 Balance -620 -650 268 Weight 45.359 kg Intake: IV 20 Invasive Line 2 20 Intake, IV Titration 50 Amount cefTRIAXone 2 gm In 50 Sodium Chloride 0.9% 50 ml @ 100 mls/hr IVPB Q24HR [facility] Rx#:[id number] Oral 180 598 Output: Urine 800 650 400 Other: Voiding Method External Catheter External Catheter External Catheter # Voids 1 # Bowel Movements 1 - Labs CBC & Chem 7: 05/08/23 10:52 05/08/23 10:52 Labs: Abnormal Lab Results - Last 24 Hours (Table) 05/08/23 05/09/23 Range/Units 20:42 16:38 POC Glucose (mg/dL) 141 H 151 H (70-110) mg/dL Microbiology - Last 24 Hours (Table) 05/06/23 17:52 Blood Culture - Preliminary Blood
[2023-05-09 20:03] LABS: Glucose,Whole Blood 300 mg/dL (70-110)
[2023-05-09] MEDS: MONTELUKAST 10 MG TAB PO SCH (20:42)
[2023-05-09] MEDS: ATORVASTATIN 40 MG TAB PO SCH (20:42)
[2023-05-09] MEDS: INSULIN ASPART (NovoLOG) 100 UNIT/ML VIAL SQ SCH (20:43)
[2023-05-10 06:24] LABS: Glucose,Whole Blood 102 mg/dL (70-110)
[2023-05-10] MEDS: INSULIN ASPART (NovoLOG) 100 UNIT/ML VIAL SQ SCH ×4 (06:25→21:24)
[2023-05-10] MEDS: SODIUM CHLORIDE 0.9% 1,000 ML IV SCH (06:25)
[2023-05-10] MEDS: PANTOPRAZOLE 40 MG TABLET PO SCH (06:30)
--- NOTE | 2023-05-10 07:29 | US ---
EXAMINATION TYPE: US thyroid st tissue head/neck DATE OF EXAM: 05/09/2023 COMPARISON: NONE CLINICAL INDICATION: Female, 82 years old with history of Hyperthyroidism; Hyperthyroidism. Not on me dication *Pt has COVID and was SOB during exam. GLAND SIZE: Right Lobe: 4.7 x 1.8 x 2.0 cm Overall Parenchyma: heterogenous Left Lobe: 4.5 x 1.6 x 1.7 cm Overall Parenchyma: heterogenous Isthmus Thickness: 0.3 cm NODULES RIGHT: # of nodules measured on right: 3 1. 1.3 X 0.9 x 1.3 cm, mid mid, TIRADS Score: 3 TIRADS Category 3: Composition: Mixed cystic and solid (1 point). Echogenicity: Hypoechoic (2 points). Shape: Wider than tall (0 points). Margin: Smooth (0 points). Echogenic foci: None or large comet-tail artifacts (0 points) Recommendation: If >2.5cm: FNA; If >1.5cm: Follow up at 1,3,5 years 2. 1.8 X 1.4 x 1.3 cm, lower lateral, TIRADS Score: 0 TIRADS Category 1: Benign Composition: Cystic or almost completely cystic (0 points). Recommendation: No FNA 3. 0.9 X 0.8 x 0.8 cm, mid mid, Calcified, TIRADS Score: 4 TIRADS Category 4: Composition: Indeterminate due to calcification (2 points). Echogenicity: Cannot be determined (1 point). Shape: Wider than tall (0 points). Margin: Smooth (0 points). Echogenic foci: Macrocalcifications (1 point) Recommendation: If >1.5cm: FNA; If >1cm: Follow up at 1,2, 3,5 years LEFT: # of nodules measured on left: 2 1. 2.2 X 1.5 x 1.5 cm, mid mid, TIRADS Category 2: Composition: Mixed cystic and solid (1 point). Echogenicity: Hyperechoic or isoechoic (1 point). Shape: Wider than tall (0 points). Margin: Smooth (0 points). Echogenic foci: None or large comet-tail artifacts (0 points) Recommendation: No FNA 2. 1.1 X 0.8 x 0.7 cm, lower mid TIRADS Score: 0 TIRADS Category 1: Benign Composition: Cystic or almost completely cystic (0 points). Recommendation: No FNA ISTHMUS: # of nodules measured in the isthmus: 0 Bilateral neck scanned, no evidence of lymphadenopathy. IMPRESSION: No suspicious thyroid nodules.
--- NOTE | 2023-05-10 08:03 | XR ---
EXAMINATION TYPE: XR chest 1V portable DATE OF EXAM: 05/10/2023 7:06 AM CLINICAL INDICATION:Female, 82 years old with history of Covid, pneumonia; COMPARISON: Chest radiographs from 05/07/2023 TECHNIQUE: XR chest 1V portable Frontal view of the chest. FINDINGS: Lungs/Pleura: Similar right basilar atelectasis with increased lucency of the lung apices with flatte marty of the diaphragm. There is no evidence of pleural effusion, focal consolidation, or pneumothorax . Pulmonary vascularity: Unremarkable. Heart/mediastinum: Cardiomediastinal silhouette is unremarkable. Musculoskeletal: No acute osseous pathology. IMPRESSION: Severe emphysema with right lung base airspace disease.
[2023-05-10] MEDS: dexAMETHasone 2 MG TAB PO SCH (09:15)
[2023-05-10] MEDS: AZITHROMYCIN 500 MG TAB PO SCH (09:15)
[2023-05-10] MEDS: ASPIRIN 81 MG PO SCH (09:15)
[2023-05-10] MEDS: LOSARTAN 50 MG TAB PO SCH (09:15)
[2023-05-10] MEDS: ASCORBIC ACID 500 MG TAB PO SCH ×2 (09:15→21:24)
[2023-05-10] MEDS: APIXABAN 5 MG TAB PO SCH ×2 (09:15→21:24)
[2023-05-10] MEDS: CHOLECALCIFEROL 25 MCG (1000 IU) TABLET PO SCH (09:16)
[2023-05-10 09:19] LABS: Anisocytosis Slight; Basophils % (A) 0 %; Eosinophils % (A) 0 %; HCT 36.3 % (34.0-46.0); HGB 11.5 gm/dL (11.4-16.0); Hypochromasia Slight; Lymphocytes # (A) 0.7 k/uL (1.0-4.8); Lymphocytes % (A) 11 %; MCH 26.4 pg (25.0-35.0); MCHC 31.7 g/dL (31.0-37.0); MCV 83.3 fL (80.0-100.0); Mean Platelet Volume 9.2; Monocytes # (A) 0.5 k/uL (0-1.0); Monocytes % (A) 7 %; Neutrophils % (A) 78 %; Platelet Count 272 k/uL (150-450); RBC 4.35 m/uL (3.80-5.40); WBC 6.4 k/uL (3.8-10.6)
[2023-05-10] MEDS: METOPROLOL TARTRATE 25 MG TAB PO SCH ×2 (09:20→21:24)
[2023-05-10] MEDS: ALBUTEROL HFA INHALER INHALATION SCH ×4 (09:42→20:55)
[2023-05-10 09:56] LABS: ALT 22 U/L (4-34); AST 24 U/L (14-36); African American GFR (CKD) >90 (>60 ml/min/1.73 sqM); Alkaline Phosphatase 63 U/L (38-126); Anion Gap 10 mmol/L; Blood Urea Nitrogen 27 mg/dL (7-17); Calcium 9.3 mg/dL (8.4-10.2); Carbon Dioxide 22 mmol/L (22-30); Chloride 105 mmol/L (98-107); Glucose 143 mg/dL (74-99); Non-African American GFR(CKD) 86 (>60 ml/min/1.73 sqM); Potassium 3.9 mmol/L (3.5-5.1); Sodium 137 mmol/L (137-145); Total Bilirubin 0.4 mg/dL (0.2-1.3); Total Protein 6.2 g/dL (6.3-8.2)
[2023-05-10 11:19] LABS: Glucose,Whole Blood 121 mg/dL (70-110)
--- NOTE | 2023-05-10 13:14 | P.PN ---
Subjective Progress Note Date: 05/10/23 Principal diagnosis: Respiratory failure. Acute hypoxic respiratory failure with acute right lower lobe pneumonia and acute COVID-19 infection as well as acute on chronic pulmonary embolism and acute deep vein thrombosis This is an 82-year-old female with a known history of chronic obstructive pulmonary disease, pulmonary hypertension, former smoker on home oxygen who was recently diagnosed with CoVID and had been recovering at home with home health care nurses. Last evening she became very fatigued and weak she presented to the emergency room this morning with headache nausea shortness of breath and weakness. She also was having fevers. EKG revealed atrial fibrillation with a rapid ventricular response and some ST and T wave abnormalities. X-ray revealed chronic changes at the lung bases with a developing right lower lobe infiltrate. CT angiogram revealed acute on chronic pulmonary embolism. Right lower lobe developing pneumonia difficult to exclude. White count 6.8. Hemoglobin 12.3. Platelets 263. Lymphocytes 0.7. D-dimer 2.74. Sodium 137. Potassium 4.2. Bicarb 22. BUN 27. Creatinine 0.91. Troponin 0.047. TSH less than 0.015. COVID-19 screen positive. She is seen today in consultation in the emergency department. She is currently resting on stretcher. Awake and alert in no acute distress. She is maintaining O2 saturations in the 90s on 4 L/m per nasal cannula. She is currently in sinus bradycardia. She had been initiated on a he blanca drip. Cardizem drip at 5 mg per hour. Currently afebrile. Patient was seen and examined today on 05/07/2023, patient was admitted with acute COVID-19 infection, DVT, pulmonary embolism, and atrial fibrillation with RVR, and possible right lower lobe pneumonia. Possibly COVID-19 pneumonia or bacterial pneumonia superimposed on COVID-19 infection. At any rate patient is doing well, patient was seen by cardiology and her heparin was discontinued, she is now on eliquis. Echocardiogram is pending, patient will be started on metoprolol as per cardiology, patient is now off Cardizem. Remains empirically on antibiotics in the form of Rocephin and Zithromax, pro-calcitonin level is pending. Medically the patient is improving, and responding well to present treatment. Progress note dated 05/08/2023. 82-year-old female admitted with a diagnosis of acute coronavirus infection, DVT, pulmonary embolism, atrial fibrillation with RVR, and possible pneumonia, right lower lobe. The patient is seen today in room 362. She continues on oxygen at 4 L. The patient's getting saline at 75 mL an hour. The patient was also discovered to have a right lower extremity DVT. Current labs include a white count of 13.3, hemoglobin 11.9, hematocrit 38.1, and a platelet count of 287,000. Sodium 135, potassium 4, chlorides 104, CO2 20, BUN 20, creatinine 0.58. Chest x-ray from May 07 shows a right basilar infiltrate, and changes of COPD. Progress note dated 05/09/2023. Female admitted with a diagnosis of acute coronavirus infection, deep vein thrombosis, pulmonary embolism, atrial fibrillation/RVR, and possible right lower lobe pneumonia. The patient is seen today in room 362. Continues on oxygen at 4 L. Saturations are 96%. The patient is not receiving any IV fluids. Chest x-ray portable, is ordered for tomorrow. The patient is a DO NOT RESUSCITATE patient. No new labs today other than a glucose of 103. Labs from yesterday have been reviewed. Progress note dated 05/10/2023. 82-year-old female with a diagnosis of acute coronavirus infection, deep vein thrombosis, pulmonary embolism, atrial fibrillation/RVR, and right lower lobe pneumonia. Currently, she is on 5 L nasal cannula. He getting saline at 75 mL an hour. Her most recent chest x-ray shows slight improvement. Current laboratory data includes a white count 6.4, hemoglobin 11.5, hematocrit 36.3, and a normal platelet count. Sodium 137, potassium 3.9, chlorides 105, CO2 22, UN 27, creatinine 0.62. The rest of the labs look okay. Objective - Vital Signs Vital signs: Vital Signs Temp 97.9 F 05/09/23 16:57 Pulse 75 05/10/23 12:00 Resp 16 05/10/23 12:00 BP 165/83 05/10/23 12:00 Pulse Ox 90 L 05/10/23 12:00 FiO2 Intake & Output 05/09/23 05/10/23 05/10/23 18:59 06:59 18:59 Intake Total 668 20 10 Output Total 400 600 Balance 268 -580 10 Intake: IV 20 20 10 Invasive Line 2 20 20 10 Intake, IV Titration 50 Amount cefTRIAXone 2 gm In 50 Sodium Chloride 0.9% 50 ml @ 100 mls/hr IVPB Q24HR [facility] Rx#:[id number] Oral 598 Output: Urine 400 600 Other: Voiding Method External Catheter External Catheter External Catheter # Voids 1 # Bowel Movements 1 - Exam No acute distress, oriented 3. Currently on 5 L of oxygen by nasal cannula. HEENT examination is grossly unremarkable. Mucous membranes are moist. No oral lesions. Neck supple. Full range of motion. No adenopathy thyromegaly or neck vein distention. Cardiovascular examination reveals regular rhythm rate. S1-S2 normal. No S3 or S4. No discernible murmur noted. Heart sounds are distant. Heart rate 75 bpm. Lungs reveal right basilar crackles. No wheezes. No rhonchi. Saturations are 96% on 5 L. Breath sounds are otherwise equal. Abdomen soft bowel sounds are heard. No masses or tenderness. Extremities are intact. No cyanosis clubbing or edema. Skin is without rash or lesion. Neurologic examination is brief but nonfocal. - Labs CBC & Chem 7: 05/10/23 08:56 05/10/23 08:56 Labs: Abnormal Lab Results - Last 24 Hours (Table) 05/09/23 05/09/23 05/10/23 Range/Units 16:38 20:02 08:56 RDW 16.0 H (11.5-15.5) % Lymphocytes # 0.7 L (1.0-4.8) k/uL BUN (7-17) mg/dL Glucose (74-99) mg/dL POC Glucose (mg/dL) 151 H 300 H (70-110) mg/dL Total Protein (6.3-8.2) g/dL Albumin (3.5-5.0) g/dL 05/10/23 05/10/23 Range/Units 08:56 11:15 RDW (11.5-15.5) % Lymphocytes # (1.0-4.8) k/uL BUN 27 H (7-17) mg/dL Glucose 143 H (74-99) mg/dL POC Glucose (mg/dL) 121 H (70-110) mg/dL Total Protein 6.2 L (6.3-8.2) g/dL Albumin 3.0 L (3.5-5.0) g/dL Microbiology - Last 24 Hours (Table) 05/06/23 17:52 Blood Culture - Preliminary Blood Assessment and Plan Assessment: Acute hypoxemic respiratory failure, multifactorial. Acute on chronic pulmonary embolism. Acute deep vein thrombosis. Atrial fibrillation, new onset with rapid ventricular response. Community-acquired pneumonia, right lower lobe. Recent coronavirus infection. Plan: Plan dated 05/08/2023. The patient was transitioned to a factor X a inhibitor, from heparin. The patient continues on antibiotics in the form of ceftriaxone, and azithromycin. Additional recommendations and suggestions are forthcoming. Pro-calcitonin level is elevated at 0.29. Labs, x-rays, and medications are reviewed. We will continue to follow the patient, and make recommendations along the way. The patient's overall prognosis remains very guarded. Plan dated 05/09/2023. The patient is seen today in room 362. She continues on oxygen at 4 L. Labs, x-rays, and medications are reviewed. The patient continues on azithromycin, and Rocephin. In addition, the patient is getting vitamin C, vitamin D3, and zinc. The patient is also getting Decadron, 6 mg daily. We will continue to follow, and make recommendations along the way. The patient's overall prognosis remains guarded. The patient is a DO NOT RESUSCITATE patient. We will continue to follow make recommendations, where appropriate. Plan dated 05/10/2023. The patient is seen today in room 362. The patient's chest x-ray, and my opinion, is slightly improved. She still does have a right lower lobe infiltrate. She's currently on 5 L of oxygen. Labs, x-rays, medications are reviewed. Saturations are 96%. Clinically, she feels better. She continues on antibiotics, vitamins, and Decadron. We will continue to follow the patient, make recommendations along the way. The patient is a DO NOT RESUSCITATE patient. Prognosis is certainly guarded. Time with Patient: Less than 30
--- NOTE | 2023-05-10 13:57 | P.PN ---
Subjective HISTORY OF PRESENT ILLNESS: The patient is a pleasant 82-year-old female patient with a past medical history significant for hypertension and dyslipidemia and chronic obstructive pulmonary disease and recently diagnosed of COVID 19 infection she was recovering at home. She presented to the emergency department complaining of shortness of breath for the last 24 hours with no associated chest pain or chest discomfort and no dizziness or lightheadedness and no feeling of heart racing or fluttering and no recent she has been experiencing also cough with no sputum production and no fever or chills. She was diagnosed was left lower extremity DVT and also pulmonary embolism. She was started on heparin IV. After that she went into atrial fibrillation with RVR and started on Cardizem drip and subsequently converted to normal sinus mechanism. No history of atrial fibrillation before. The patient currently doesn't follow-up with the hunter trapper disease or congestive heart failure or cardiac arrhythmia in a sinus mechanism. She is off Cardizem drip. She still on heparin IV the chest x-ray showed chronic obstr uctive pulmonary disease. The patient EKG showed A. fib with RVR but subsequent EKG showed sinus mechanism with short [place] interval but no preexcitation. Computed tomography scan of the chest and lower extremity venous duplex study reviewed. The blood work is unremarkable. The examination is remarkable for bilateral expiratory wheezing and regular rhythm with a systolic murmur right and left upper sternal border 05/09/23 Patient is doing well from cardiac vessel standpoint. Patient's heart rate are better controlled. She continues to be in atrial fibrillation May 10 2023 examined this morning at the bedside. Patient denies chest pain or pressure. She denies shortness of breath. Telemetry reveals sinus mechanism with heart rate in the 60s. She is anticoagulated with Eliquis. PHYSICAL EXAM: VITAL SIGNS: Reviewed. GENERAL: Well-developed in no acute distress. NECK: Supple. No JVD or thyromegaly LUNGS: Respirations even and unlabored. Lungs essentially clear to auscultation bilaterally. HEART: Regular rate and rhythm. S1 and S2 heard. EXTREMITIES: Normal range of motion. No clubbing or cyanosis. Peripheral pulses intact. No lower extremity edema ASSESSMENT: Atrial fibrillation with RVR in the setting of pulmonary embolism which is likely triggered the A. fib, paroxysmal, currently maintaining sinus mechanism Recent diagnosis of DVT/PE in the setting of Covid 19 infection Recent diagnosis of Covid 19 infection Chronic hypoxic respiratory failure Hypertension and dyslipidemia PLAN: Continue current cardiac medications Patient is currently stable from a cardiac perspective with no further inpatient recommendations We will sign off. Please reconsult as needed. Patient is to follow up in the office post discharge Nurse practitioner note has been reviewed by physician. Signing provider agrees with the documented findings, assessment, and plan of care. Objective - Vital Signs Vital signs: Vital Signs Temp 97.9 F 05/09/23 16:57 Pulse 75 05/10/23 12:00 Resp 16 05/10/23 12:00 BP 165/83 05/10/23 12:00 Pulse Ox 90 L 05/10/23 12:00 FiO2 Intake & Output 05/09/23 05/10/23 05/10/23 18:59 06:59 18:59 Intake Total 668 20 20 Output Total 400 600 Balance 268 -580 20 Weight 45.359 kg Intake: IV 20 20 20 Invasive Line 2 20 20 20 Intake, IV Titration 50 Amount cefTRIAXone 2 gm In 50 Sodium Chloride 0.9% 50 ml @ 100 mls/hr IVPB Q24HR [facility] Rx#:[id number] Oral 598 Output: Urine 400 600 Other: Voiding Method External Catheter External Catheter External Catheter # Voids 1 1 # Bowel Movements 1 - Labs CBC & Chem 7: 05/10/23 08:56 05/10/23 08:56 Labs: Abnormal Lab Results - Last 24 Hours (Table) 05/09/23 05/09/23 05/10/23 Range/Units 16:38 20:02 08:56 RDW 16.0 H (11.5-15.5) % Lymphocytes # 0.7 L (1.0-4.8) k/uL BUN (7-17) mg/dL Glucose (74-99) mg/dL POC Glucose (mg/dL) 151 H 300 H (70-110) mg/dL Total Protein (6.3-8.2) g/dL Albumin (3.5-5.0) g/dL 05/10/23 05/10/23 Range/Units 08:56 11:15 RDW (11.5-15.5) % Lymphocytes # (1.0-4.8) k/uL BUN 27 H (7-17) mg/dL Glucose 143 H (74-99) mg/dL POC Glucose (mg/dL) 121 H (70-110) mg/dL Total Protein 6.2 L (6.3-8.2) g/dL Albumin 3.0 L (3.5-5.0) g/dL Microbiology - Last 24 Hours (Table) 05/06/23 17:52 Blood Culture - Preliminary Blood
[2023-05-10] MEDS: NYSTATIN 100,000 UNIT/ML SUSP 500,000 UNIT/5 ML CUP PO SCH ×2 (16:09→21:24)
[2023-05-10 16:42] LABS: Glucose,Whole Blood 167 mg/dL (70-110)
--- NOTE | 2023-05-10 18:36 | P.PN ---
Subjective Progress Note Date: 05/08/23 HISTORY OF PRESENT ILLNESS: 82-year-old patient with past medical history significant for COPD, history of pulmonary hypertension, recently diagnosed with Covid presents to the emergency department with complains of fatigue, generalized weakness at the time of presentation in ER patient was noted to be short of breath had episode of nausea patient was noted to have new onset atrial fibrillation and was noted to have rapid ventricular response. Workup initiated in ER included a chest x-ray which showed right lower lobe pneumonia patient had CT chest done which showed moderate to severe emphysema patchy density right lower lobe concerning for pneumonia. CT finding concern for acute on chronic pulmonary embolism. EKG obtained in ER showed atrial fibrillation with heart rate of 134, no ST segment elevation was noted patient did have ST segment depression in lateral leads. At the time of presentation in ER patient was given 2 L of fluid bolus, patient started on IV heparin and Cardizem drip with consultation from cardiology as well as pulmonary medicine Patient primary care physician was contacted by ED team and given a sign out on further follow-up, [place] [facility] took over since covering Dr. Bond. History was obtained from Daughter as well on the phone, ever since discharge from [facility] patient has been very weak 05/07/23: Patient seen and evaluated bedside, patient continued to have cough, CBC reviewed showed reticulocyte count 219, WBC 1.7, patient IV heparin drip will be discontinued and transition to Eliquis, patient will need physical therapy occupational therapy evaluation followed by cardiology and pulmonary medicine, follow-up chest x-ray obtained showed right basilar opacity, changes consistent with COPD 05/08: Patient is laying down in bed she continues to be somewhat short of breath, she continues to have wet cough, bringing phlegm production, the sputum appears to be somewhat bloody, she does appear to be quite anxious she is currently on 5 L nasal cannula, she has been getting albuterol HFA on a regular basis, she has been followed by pulmonary medicine as well as cardiology, she has been treated for pulmonary embolism as well as right lower extremity femoral and popliteal DVT, she has been treated for on gram-negative pneumonia as well, patient also has been generally weak, she was found to have a significant hyperthyroidism, she will need to have some workup in regard to that. REVIEW OF SYSTEMS: Constitutional: No documented fever, no chills, no night sweats. positive for weight change. positive for weakness, fatigue or lethargy. No daytime sleepiness. HEENT: No headache. No blurred vision or double vision, no loss of vision. loss of Hearing, no ringing in the ears, no dizziness. No nasal drainage or congestion. No epistaxis. No sore throat. Lungs: positive for shortness of breath, positive for cough, poitive for sputum production. positive for wheezing. Reports dyspnea with activity. Cardiovascular: No chest pain, no lower extremity edema. No palpitations. No paroxysmal nocturnal dyspnea. No orthopnea. No lightheadedness or dizziness. No syncopal episodes. Abdominal: Reports no abdominal pain. No nausea, vomiting. No diarrhea. No constipation. No bloody or tarry stools reports loss of appetite. Genitourinary: No dysuria, increased frequency, urgency. No urinary retention. Musculoskeletal: No myalgias. positive for muscle weakness, positive for gait dysfunction, no frequent falls. No back pain. No neck pain. Integumentary: No wounds, no lesions. No rash or pruritus. No unusual bruising . No change in hair or nails. Neurologic: No aphasia. No facial droop. No change in mentation. No head injury. No headache. No paralysis. No paresthesia. Psychiatric: No depression. No anxiety. No mood swings. Endocrine: No abnormal blood sugars. No weight change. PHYSICAL EXAMINATION: General: 82-year-old female laying down in bed in moderate respiratory distress HEENT: Head is atraumatic, normocephalic, pupils were equal round reactive to light and recommendation, extraocular muscle movement were intact, sclera nonicteric, conjunctivae were pale, mucous membranes of the mouth are somewhat dry. Neck: Supple, no JVP, normal carotid upstroke bilaterally, no lymphadenopath y.positive for thrush Chest: Decreased breath sounds at the bases, moderate rhonchi, moderate expir atory wheezes, mild to moderate intercostal retractions. Heart: First heart sound is normal, second heart sound is normal irregularly irregular there is systolic ejection murmur 2/6 located in the left border. Abdomen: Soft, nontender, nondistended, positive bowel sounds. Extremities: There is no edema no calf tenderness DP +2 bilaterally. Neurologic examination: Patient is awake alert and oriented X 3, cranial nerves II-12 appear grossly intact, muscle power were 3 out of 5 in upper extremities and 3 out of 5 in bilateral lower extremities, deep tendon reflexes normal bilaterally. ASSESSMENT AND PLAN: 1. Acute hypoxemic respiratory failure due to acute pulmonary emboli associated with COPD exacerbation and right lower lobe pneumonia. Continue patient on Zithromax 500 mg orally once every day, continue patient on oxygen 5 L nasal cannula, continue patient on Decadron 6 mg orally once every day, monitor the patient very closely. 2. Pulmonary emboli as well as right femoral and popliteal DVT. Continue Eliquis 10 mg orally twice every day for 7 days followed by 5 mg orally twice every day. 3. Atrial fibrillation with rapid ventricular response likely related to pulmonary emboli. Continue patient on metoprolol 25 minute gram orally twice every day, continue patient on Eliquis 10 g orally twice every day. 4. 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 Continue oxygen 5 L nasal cannula, continue patient on albuterol HFA 2 puffs inhalation every 4 hours around the clock, continue Zithromax continue Decadron. 5. Recent COVID-19 pneumonia. Was treated with Remdesevir at [facility]. 6. Hyperthyroidism. TSH is very low. T4 is high patient will need to have an ultrasound of the thyroid as well as thyroid scan with uptake she will likely need to be started on Tapazole 5 mg orally twice every day after the testing is done. 7. Mixed hyperlipidemia. Continue patient on atorvastatin 40 mg once every day. 8. Thrush. Start the patient on nystatin swish and swallow 500,000 unit orally 4 times every day. 9. Medical debility physical therapy evaluation will likely require subacute rehab with patient. 10. Overall prognosis is guarded 11. No code. 12. Daughter at the bedside was updated. Objective - Vital Signs Vital signs: Vital Signs Temp 98.7 F 05/08/23 16:00 Pulse 62 05/08/23 16:00 Resp 20 05/08/23 16:00 BP 175/90 05/08/23 16:00 Pulse Ox 93 L 05/08/23 16:00 FiO2 Intake & Output 05/08/23 05/08/23 05/09/23 06:59 18:59 06:59 Intake Total 180 Output Total 900 800 Balance -900 -620 Weight 45.359 kg Intake: Oral 180 Output: Urine 900 800 Other: Voiding Method External Catheter External Catheter # Voids 1 - Labs CBC & Chem 7: 05/10/23 08:56 05/10/23 08:56 Labs: Abnormal Lab Results - Last 24 Hours (Table) 05/07/23 05/07/23 05/08/23 Range/Units 03:44 20:31 10:52 WBC 13.3 H (3.8-10.6) k/uL RDW 16.1 H (11.5-15.5) % Sodium (137-145) mmol/L Carbon Dioxide (22-30) mmol/L BUN (7-17) mg/dL POC Glucose (mg/dL) 243 H (70-110) mg/dL Procalcitonin 0.29 H (0.02-0.09) ng/mL 05/08/23 05/08/23 Range/Units 10:52 16:47 WBC (3.8-10.6) k/uL RDW (11.5-15.5) % Sodium 135 L (137-145) mmol/L Carbon Dioxide 20 L (22-30) mmol/L BUN 20 H (7-17) mg/dL POC Glucose (mg/dL) 130 H (70-110) mg/dL Procalcitonin (0.02-0.09) ng/mL Microbiology - Last 24 Hours (Table) 05/06/23 17:52 Blood Culture - Preliminary Blood
--- NOTE | 2023-05-10 18:40 | P.PN ---
Subjective Progress Note Date: 05/09/23 HISTORY OF PRESENT ILLNESS: 82-year-old patient with past medical history significant for COPD, history of pulmonary hypertension, recently diagnosed with Covid presents to the emergency department with complains of fatigue, generalized weakness at the time of presentation in ER patient was noted to be short of breath had episode of nausea patient was noted to have new onset atrial fibrillation and was noted to have rapid ventricular response. Workup initiated in ER included a chest x-ray which showed right lower lobe pneumonia patient had CT chest done which showed moderate to severe emphysema patchy density right lower lobe concerning for pneumonia. CT finding concern for acute on chronic pulmonary embolism. EKG obtained in ER showed atrial fibrillation with heart rate of 134, no ST segment elevation was noted patient did have ST segment depression in lateral leads. At the time of presentation in ER patient was given 2 L of fluid bolus, patient started on IV heparin and Cardizem drip with consultation from cardiology as well as pulmonary medicine Patient primary care physician was contacted by ED team and given a sign out on further follow-up, [facility] took over since covering Dr. Bond. History was obtained from Daughter as well on the phone, ever since discharge from [facility] patient has been very weak 05/07/23: Patient seen and evaluated bedside, patient continued to have cough, CBC reviewed showed reticulocyte count 219, WBC 1.7, patient IV heparin drip will be discontinued and transition to Eliquis, patient will need physical therapy occupational therapy evaluation followed by cardiology and pulmonary medicine, follow-up chest x-ray obtained showed right basilar opacity, changes consistent with COPD 05/08: Patient is laying down in bed she continues to be somewhat short of breath, she continues to have wet cough, bringing phlegm production, the sputum appears to be somewhat bloody, she does appear to be quite anxious she is currently on 5 L nasal cannula, she has been getting albuterol HFA on a regular basis, she has been followed by pulmonary medicine as well as cardiology, she has been treated for pulmonary embolism as well as right lower extremity femoral and popliteal DVT, she has been treated for on gram-negative pneumonia as well, patient also has been generally weak, she was found to have a significant hyperthyroidism, she will need to have some workup in regard to that. 05/09: Patient is laying down in bed she has appears to be a bit better shortness of breath today, she continues to have coughing, minimal from production, she continues to be on 4 L nasal cannula, she denies any chest pressure with that, she has no hemoptysis today, her appetite is very poor, she is only drinking coffee and she has candies and bedside, she continues to have thrush in her mouth, she is currently on nystatin swish and swallow, she is curr ently on Decadron 6 but gram orally once every day, she is currently on albuterol, she is currently on same treatment plan, likely will be transferred to [facility] when the prior authorization is done. REVIEW OF SYSTEMS: Constitutional: No documented fever, no chills, no night sweats. positive for weight change. positive for weakness, fatigue or lethargy. No daytime sleepiness. HEENT: No headache. No blurred vision or double vision, no loss of vision. loss of Hearing, no ringing in the ears, no dizziness. No nasal drainage or congestion. No epistaxis. No sore throat. Lungs: positive for shortness of breath, positive for cough, poitive for sputum production. positive for wheezing. Reports dyspnea with activity. Cardiovascular: No chest pain, no lower extremity edema. No palpitations. No paroxysmal nocturnal dyspnea. No orthopnea. No lightheadedness or dizziness. No syncopal episodes. Abdominal: Reports no abdominal pain. No nausea, vomiting. No diarrhea. No constipation. No bloody or tarry stools reports loss of appetite. Genitourinary: No dysuria, increased frequency, urgency. No urinary retention. Musculoskeletal: No myalgias. positive for muscle weakness, positive for gait dysfunction, no frequent falls. No back pain. No neck pain. Integumentary: No wounds, no lesions. No rash or pruritus. No unusual bruising. No change in hair or nails. Neurologic: No aphasia. No facial droop. No change in mentation. No head injury. No headache. No paralysis. No paresthesia. Psychiatric: No depression. No anxiety. No mood swings. Endocrine: No abnormal blood sugars. No weight change. PHYSICAL EXAMINATION: General: 82-year-old female laying down in bed in moderate respiratory distress HEENT: Head is atraumatic, normocephalic, pupils were equal round reactive to light and recommendation, extraocular muscle movement were intact, sclera nonicteric, conjunctivae were pale, mucous membranes of the mouth are somewhat dry. Neck: Supple, no JVP, normal carotid upstroke bilaterally, no lymphadenopathy.positive for thrush Chest: Decreased breath sounds at the bases, moderate rhonchi, moderate expiratory wheezes, mild to moderate intercostal retractions. Heart: First heart sound is normal, second heart sound is normal irregularly irregular there is systolic ejection murmur 2/6 located in the left border. Abdomen: Soft, nontender, nondistended, positive bowel sounds. Extremities: There is no edema no calf tenderness DP +2 bilaterally. Neurologic examination: Patient is awake alert and oriented X 3, cranial nerves II-12 appear grossly intact, muscle power were 3 out of 5 in upper extremities and 3 out of 5 in bilateral lower extremities, deep tendon reflexes normal bilaterally. ASSESSMENT AND PLAN: 1. Acute hypoxemic respiratory failure due to acute pulmonary emboli associated with COPD exacerbation and right lower lobe pneumonia. Continue patient on Zithromax 500 mg orally once every day, continue patient on oxygen 4 L nasal cannula, continue patient on Decadron 6 mg orally once every day, monitor the patient very closely. 2. Pulmonary emboli as well as right femoral and popliteal DVT. Continue E liquis 10 mg orally twice every day for 7 days followed by 5 mg orally twice every day. 3. Atrial fibrillation with rapid ventricular response likely related to pulmonary emboli. Continue patient on metoprolol 25 minute gram orally twice every day, continue patient on Eliquis 5 mg orally twice every day. 4. 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 Continue oxygen 5 L nasal cannula, continue patient on albuterol HFA 2 puffs inhalation every 4 hours around the clock, continue Zithromax continue Decadron. 5. Recent COVID-19 pneumonia. Was treated with Remdesevir at [facility]. 6. Hyperthyroidism. TSH is very low. T4 is high patient will need to have an ultrasound of the thyroid as well as thyroid scan with uptake she will likely need to be started on Tapazole 5 mg orally twice every day after the testing is done 7. Mixed hyperlipidemia. Continue patient on atorvastatin 40 mg once every day. 8. Thrush. Start the patient on nystatin swish and swallow 500,000 unit orally 4 times every day. 9. Medical debility physical therapy evaluation will likely require subacute rehab with patient. 10. Overall prognosis is guarded 11. No code. 12. Daughter at the bedside was updated. Objective - Vital Signs Vital signs: Vital Signs Temp 97.9 F 05/09/23 16:57 Pulse 72 05/09/23 16:57 Resp 22 05/09/23 16:57 BP 146/74 05/09/23 16:57 Pulse Ox 94 L 05/09/23 16:57 FiO2 Intake & Output 05/09/23 05/09/23 05/10/23 06:59 18:59 06:59 Intake Total 668 Output Total 650 400 Balance -650 268 Intake: IV 20 Invasive Line 2 20 Intake, IV Titration 50 Amount cefTRIAXone 2 gm In 50 Sodium Chloride 0.9% 50 ml @ 100 mls/hr IVPB Q24HR [facility] Rx#:[id number] Oral 598 Output: Urine 650 400 Other: Voiding Method External Catheter External Catheter # Voids 1 # Bowel Movements 1 - Labs CBC & Chem 7: 05/10/23 08:56 05/10/23 08:56 Labs: Abnormal Lab Results - Last 24 Hours (Table) 05/08/23 05/09/23 Range/Units 20:42 16:38 POC Glucose (mg/dL) 141 H 151 H (70-110) mg/dL Microbiology - Last 24 Hours (Table) 05/06/23 17:52 Blood Culture - Preliminary Blood
--- NOTE | 2023-05-10 18:43 | P.PN ---
Subjective Progress Note Date: 05/10/23 HISTORY OF PRESENT ILLNESS: 82-year-old patient with past medical history significant for COPD, history of pulmonary hypertension, recently diagnosed with Covid presents to the emergency department with complains of fatigue, generalized weakness at the time of presentation in ER patient was noted to be short of breath had episode of nausea patient was noted to have new onset atrial fibrillation and was noted to have rapid ventricular response. Workup initiated in ER included a chest x-ray which showed right lower lobe pneumonia patient had CT chest done which showed moderate to severe emphysema patchy density right lower lobe concerning for pneumonia. CT finding concern for acute on chronic pulmonary embolism. EKG obtained in ER showed atrial fibrillation with heart rate of 134, no ST segment elevation was noted patient did have ST segment depression in lateral leads. At the time of presentation in ER patient was given 2 L of fluid bolus, patient started on IV heparin and Cardizem drip with consultation from cardiology as well as pulmonary medicine Patient primary care physician was contacted by ED team and given a sign out on further follow-up, [facility] took over since covering Dr. Bond. History was obtained from Daughter as well on the phone, ever since discharge from [facility] patient has been very weak 05/07/23: Patient seen and evaluated bedside, patient continued to have cough, CBC reviewed showed reticulocyte count 219, WBC 1.7, patient IV heparin drip will be discontinued and transition to Eliquis, patient will need physical therapy occupational therapy evaluation followed by cardiology and pulmonary medicine, follow-up chest x-ray obtained showed right basilar opacity, changes consistent with COPD 05/08: Patient is laying down in bed she continues to be somewhat short of breath, she continues to have wet cough, bringing phlegm production, the sputum appears to be somewhat bloody, she does appear to be quite anxious she is currently on 5 L nasal cannula, she has been getting albuterol HFA on a regular basis, she has been followed by pulmonary medicine as well as cardiology, she has been treated for pulmonary embolism as well as right lower extremity femoral and popliteal DVT, she has been treated for on gram-negative pneumonia as well, patient also has been generally weak, she was found to have a significant hyperthyroidism, she will need to have some workup in regard to that. 05/09: Patient is laying down in bed she has appears to be a bit better shortness of breath today, she continues to have coughing, minimal from production, she continues to be on 4 L nasal cannula, she denies any chest pressure with that, she has no hemoptysis today, her appetite is very poor, she is only drinking coffee and she has candies and bedside, she continues to have thrush in her mouth, she is currently on nystatin swish and swallow, she is curr ently on Decadron 6 but gram orally once every day, she is currently on albuterol, she is currently on same treatment plan, likely will be transferred to [facility] when the prior authorization is done. 05/10: Patient is laying down in bed, she is feeling a lot better today, she could use to have minimal cough, not a lot of phlegm production, she has no hemoptysis, she has no pleurisy, she continues to lose weight, she had an ultrasound of the thyroid gland that showed evidence of thyroid nodules one of them was in the range that is amicable to biopsy but we are waiting for the t hyroid scan with uptake that could not be done until next week due to the lack of the nuclear medicine, this is will likely be scheduled as an outpatient for next week, and the patient after that would be started immediately on Tapazole 5 mg orally twice every day REVIEW OF SYSTEMS: Constitutional: No documented fever, no chills, no night sweats. positive for weight change. positive for weakness, fatigue or lethargy. No daytime sleepiness. HEENT: No headache. No blurred vision or double vision, no loss of vision. loss of Hearing, no ringing in the ears, no dizziness. No nasal drainage or congestion. No epistaxis. No sore throat. Lungs: positive for shortness of breath, positive for cough, poitive for sputum production. positive for wheezing. Reports dyspnea with activity. Cardiovascular: No chest pain, no lower extremity edema. No palpitations. No paroxysmal nocturnal dyspnea. No orthopnea. No lightheadedness or dizziness. No syncopal episodes. Abdominal: Reports no abdominal pain. No nausea, vomiting. No diarrhea. No constipation. No bloody or tarry stools reports loss of appetite. Genitourinary: No dysuria, increased frequency, urgency. No urinary retention. Musculoskeletal: No myalgias. positive for muscle weakness, positive for gait dysfunction, no frequent falls. No back pain. No neck pain. Integumentary: No wounds, no lesions. No rash or pruritus. No unusual bruising. No change in hair or nails. Neurologic: No aphasia. No facial droop. No change in mentation. No head injury. No headache. No paralysis. No paresthesia. Psychiatric: No depression. No anxiety. No mood swings. Endocrine: No abnormal blood sugars. No weight change. PHYSICAL EXAMINATION: General: 82-year-old female laying down in bed in moderate respiratory distress HEENT: Head is atraumatic, normocephalic, pupils were equal round reactive to light and recommendation, extraocular muscle movement were intact, sclera nonicteric, conjunctivae were pale, mucous membranes of the mouth are somewhat dry. Neck: Supple, no JVP, normal carotid upstroke bilaterally, no lymphadenopathy.positive for thrush Chest: Decreased breath sounds at the bases, moderate rhonchi, moderate expiratory wheezes, mild to moderate intercostal retractions. Heart: First heart sound is normal, second heart sound is normal irregularly irregular there is systolic ejection murmur 2/6 located in the left border. Abdomen: Soft, nontender, nondistended, positive bowel sounds. Extremities: There is no edema no calf tenderness DP +2 bilaterally. Neurologic examination: Patient is awake alert and oriented X 3, cranial nerves II-12 appear grossly intact, muscle power were 3 out of 5 in upper extremities and 3 out of 5 in bilateral lower extremities, deep tendon reflexes normal bilaterally. ASSESSMENT AND PLAN: 1. Acute hypoxemic respiratory failure due to acute pulmonary emboli associated with COPD exacerbation and right lower lobe pneumonia. Continue patient on Zithromax 500 mg orally once every day, continue patient on oxygen 4 L nasal cannula, continue patient on Decadron 6 mg orally once every day, monitor the patient very closely. 2. Pulmonary emboli as well as right femoral and popliteal DVT. Continue Eliquis 10 mg orally twice every day for 7 days followed by 5 mg orally twice every day. 3. Atrial fibrillation with rapid ventricular response likely related to pulmonary emboli. Continue patient on metoprolol 25 minute gram orally twice every day, continue patient on Eliquis 5 mg orally twice every day. 4. 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 Continue oxygen 5 L nasal cannula, continue patient on albuterol HFA 2 puffs inhalation every 4 hours around the clock, continue Zithromax continue Decadron. 5. Recent COVID-19 pneumonia. Was treated with Remdesevir at [facility]. 6. Hyperthyroidism. TSH is very low. T4 is high s reviewed the ultrasound of the thyroid gland that showed evidence of multinodular goiter one of them at least should be biopsied. she will likely need to be started on Tapazole 5 mg orally twice every day after the testing is done 7. Mixed hyperlipidemia. Continue patient on atorvastatin 40 mg once every day. 8. Thrush. Start the patient on nystatin swish and swallow 500,000 unit orally 4 times every day. 9. Medical debility physical therapy evaluation will likely require subacute rehab with patient. 10. Overall prognosis is guarded 11. No code. 12. Disposition [facility] when Prior Auth is done Objective - Vital Signs Vital signs: Vital Signs Temp 97.9 F 05/09/23 16:57 Pulse 74 05/10/23 16:00 Resp 16 05/10/23 16:00 BP 148/75 05/10/23 16:00 Pulse Ox 96 05/10/23 16:00 FiO2 Intake & Output 05/09/23 05/10/23 05/10/23 18:59 06:59 18:59 Intake Total 668 20 20 Output Total 400 600 Balance 268 -580 20 Weight 45.359 kg Intake: IV 20 20 20 Invasive Line 2 20 20 20 Intake, IV Titration 50 Amount cefTRIAXone 2 gm In 50 Sodium Chloride 0.9% 50 ml @ 100 mls/hr IVPB Q24HR STEPHANIE Rx#:[id number] Oral 598 Output: Urine 400 600 Other: Voiding Method External Catheter External Catheter External Catheter # Voids 1 1 # Bowel Movements 1 - Labs CBC & Chem 7: 05/10/23 08:56 05/10/23 08:56 Labs: Abnormal Lab Results - Last 24 Hours (Table) 05/09/23 05/10/23 05/10/23 Range/Units 20:02 08:56 08:56 RDW 16.0 H (11.5-15.5) % Lymphocytes # 0.7 L (1.0-4.8) k/uL BUN 27 H (7-17) mg/dL Glucose 143 H (74-99) mg/dL POC Glucose (mg/dL) 300 H (70-110) mg/dL Total Protein 6.2 L (6.3-8.2) g/dL Albumin 3.0 L (3.5-5.0) g/dL 05/10/23 05/10/23 Range/Units 11:15 16:39 RDW (11.5-15.5) % Lymphocytes # (1.0-4.8) k/uL BUN (7-17) mg/dL Glucose (74-99) mg/dL POC Glucose (mg/dL) 121 H 167 H (70-110) mg/dL Total Protein (6.3-8.2) g/dL Albumin (3.5-5.0) g/dL Microbiology - Last 24 Hours (Table) 05/06/23 17:52 Blood Culture - Preliminary Blood
[2023-05-10 20:14] LABS: Glucose,Whole Blood 230 mg/dL (70-110)
[2023-05-10] MEDS: MONTELUKAST 10 MG TAB PO SCH (21:24)
[2023-05-10] MEDS: ATORVASTATIN 40 MG TAB PO SCH (21:24)
[2023-05-11 06:05] LABS: Glucose,Whole Blood 101 mg/dL (70-110)
[2023-05-11] MEDS: INSULIN ASPART (NovoLOG) 100 UNIT/ML VIAL SQ SCH ×2 (06:30→12:18)
[2023-05-11] MEDS: SODIUM CHLORIDE 0.9% 1,000 ML IV SCH (06:30)
[2023-05-11] MEDS: PANTOPRAZOLE 40 MG TABLET PO SCH (06:35)
[2023-05-11] MEDS: ALBUTEROL HFA INHALER INHALATION SCH ×2 (08:44→11:46)
[2023-05-11] MEDS: NYSTATIN 100,000 UNIT/ML SUSP 500,000 UNIT/5 ML CUP PO SCH ×2 (09:24→12:21)
[2023-05-11] MEDS: LOSARTAN 50 MG TAB PO SCH (09:24)
[2023-05-11] MEDS: dexAMETHasone 2 MG TAB PO SCH (09:25)
[2023-05-11] MEDS: ASCORBIC ACID 500 MG TAB PO SCH (09:25)
[2023-05-11] MEDS: AZITHROMYCIN 500 MG TAB PO SCH (09:25)
[2023-05-11] MEDS: CHOLECALCIFEROL 25 MCG (1000 IU) TABLET PO SCH (09:25)
[2023-05-11] MEDS: APIXABAN 5 MG TAB PO SCH (09:25)
[2023-05-11] MEDS: METOPROLOL TARTRATE 25 MG TAB PO SCH (09:26)
[2023-05-11 09:38] VITALS: RESP 16; TEMP 97.8
[2023-05-11 11:31] LABS: Glucose,Whole Blood 101 mg/dL (70-110)
--- NOTE | 2023-05-11 11:40 | P.DS ---
Providers Date of admission: 05/06/23 09:47 Expected date of discharge: 05/11/23 Attending physician: Brittni Gilbert Consults: 05/06/23 09:41 Consult Physician Routine Consulting Provider: Wei Hernandez Consult Reason/Comments: PE Do you want consulting provider notified?: Yes Primary care physician: Brittni Gilbert Hospital Course: HISTORY OF PRESENT ILLNESS: 82-year-old patient with past medical history significant for COPD, history of pulmonary hypertension, recently diagnosed with Covid presents to the emergency department with complains of fatigue, generalized weakness at the time of presentation in ER patient was noted to be short of breath had episode of nausea patient was noted to have new onset atrial fibrillation and was noted to have rapid ventricular response. Workup initiated in ER included a chest x-ray which showed right lower lobe pneumonia patient had CT chest done which showed moderate to severe emphysema patchy density right lower lobe concerning for pne umonia. CT finding concern for acute on chronic pulmonary embolism. EKG obtained in ER showed atrial fibrillation with heart rate of 134, no ST segment elevation was noted patient did have ST segment depression in lateral leads. At the time of presentation in ER patient was given 2 L of fluid bolus, patient started on IV heparin and Cardizem drip with consultation from cardiology as well as pulmonary medicine Patient primary care physician was contacted by ED team and given a sign out on further follow-up[facility] Dr. Bond. History was obtained from Daughter as well on the phone, ever since discharge from [facility] patient has been very weak 05/07/23: Patient seen and evaluated bedside, patient continued to have cough, CBC reviewed showed reticulocyte count 219, WBC 1.7, patient IV heparin drip will be discontinued and transition to Eliquis, patient will need physical therapy occupational therapy evaluation followed by cardiology and pulmonary medicine, follow-up chest x-ray obtained showed right basilar opacity, changes consistent with COPD 05/08: Patient is laying down in bed she continues to be somewhat short of breath, she continues to have wet cough, bringing phlegm production, the sputum appears to be somewhat bloody, she does appear to be quite anxious she is currently on 5 L nasal cannula, she has been getting albuterol HFA on a regular basis, she has been followed by pulmonary medicine as well as cardiology, she has been treated for pulmonary embolism as well as right lower extremity femoral and popliteal DVT, she has been treated for on gram-negative pneumonia as well, patient also has been generally weak, she was found to have a significant hyperthyroidism, she will need to have some workup in regard to that. 05/09: Patient is laying down in bed she has appears to be a bit better shortness of breath today, she continues to have coughing, minimal from production, she continues to be on 4 L nasal cannula, she denies any chest pressure with that, she has no hemoptysis today, her appetite is very poor, she is only drinking coffee and she has candies and bedside, she continues to have thrush in her mouth, she is currently on nystatin swish and swallow, she is currently on Decadron 6 but gram orally once every day, she is currently on albuterol, she is currently on same treatment plan, likely will be transferred to [facility] when the prior authorization is done. 05/10: Patient is laying down in bed, she is feeling a lot better today, she could use to have minimal cough, not a lot of phlegm production, she has no hemoptysis, she has no pleurisy, she continues to lose weight, she had an ultrasound of the thyroid gland that showed evidence of thyroid nodules one of them was in the range that is amicable to biopsy but we are waiting for the thyroid scan with uptake that could not be done until next week due to the lack of the nuclear medicine, this is will likely be scheduled as an outpatient for next week, and the patient after that would be started immediately on Tapazole 5 mg orally twice every day 05/11: Systolic blood pressure running between 130 a 61, heart rate in the 60s and 70s, pulse ox 90% on 4 L, afebrile. Capillary blood glucose running between 101 and 230. Chest x-ray performed yesterday revealed severe emphysema with right lung base airspace disease. Cardiology evaluated the patient yesterday and signed off. Patient was in sinus rhythm. She has been maintained on eliquis. Insurance authorization has been obtained and plan is for subacute rehab at [facility]. Patient will be discharged today in stable condition. DISCHARGE DIAGNOSES: 1. Acute hypoxemic respiratory failure due to acute pulmonary emboli associated with COPD exacerbation and right lower lobe pneumonia. 2. Pulmonary emboli as well as right femoral and popliteal DVT. 3. Paroxysmal Atrial fibrillation with rapid ventricular response likely related to pulmonary emboli. 4. 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 5. Recent COVID-19 pneumonia. Was treated with Remdesevir at [facility]. 6. Hyperthyroidism. 7. Mixed hyperlipidemia. 8. Thrush. 9. Medical debility physical therapy evaluation will likely require subacute rehab [facility] [place] [facility] Greater than 35 minutes was utilized and coordinating patient's discharge. Impression and plan of care have been directed as dictated by the signing physician. Susan Olson nurse practitioner acting as scribe for signing physici an. Patient Condition at Discharge: Stable Plan - Discharge Summary Discharge Rx Participant: Yes New Discharge Prescriptions: New Apixaban [Eliquis] 10 mg PO BID tab dexAMETHasone ORAL [Hexadrol] 4 mg PO DAILY tab Metoprolol Tartrate [Lopressor] 25 mg PO BID tab Nystatin 100,000 Unit/ml Susp [Mycostatin Oral Susp] 500,000 unit PO QID 9 Days ml INSULIN ASPART (NovoLOG) [NovoLOG (formulary)] 0 unit SQ ACHS each Continue Albuterol Nebulized [Ventolin Nebulized] 2.5 mg INHALATION RT-Q6H PRN PRN Reason: Shortness Of Breath Omeprazole [PriLOSEC] 40 mg PO DAILY Losartan Potassium [Cozaar] 100 mg PO DAILY HYDROcodone/APAP 7.5-325MG [Weston 7.5-325] 1 tab PO DAILY PRN #3 tab PRN Reason: Pain Albuterol Sulfate [Albuterol Sulfate Hfa] 1 - 2 puff PO RT-Q6H PRN PRN Reason: Shortness Of Breath Acetaminophen Tab [Tylenol] 500 mg PO Q6HR PRN PRN Reason: Fever And/ Or Pain Montelukast Sodium 10 mg PO HS Atorvastatin [Lipitor] 40 mg PO HS Cholecalciferol [Vitamin D3 (25 Mcg = 1000 Iu)] 25 mcg PO DAILY Ascorbic Acid [Vitamin C] 500 mg PO BID Discontinued Cefuroxime [Ceftin] 250 mg PO BID predniSONE [Deltasone] See Taper PO DAILY amLODIPine [Norvasc] 5 mg PO BID Aspirin EC [Ecotrin Low Dose] 81 mg PO HS Discharge Medication List Acetaminophen Tab [Tylenol] 500 mg PO Q6HR PRN 05/06/23 [History] Albuterol Nebulized [Ventolin Nebulized] 2.5 mg INHALATION RT-Q6H PRN 05/06/23 [History] Albuterol Sulfate [Albuterol Sulfate Hfa] 1 - 2 puff PO RT-Q6H PRN 05/06/23 [History] Ascorbic Acid [Vitamin C] 500 mg PO BID 05/06/23 [History] Atorvastatin [Lipitor] 40 mg PO HS 05/06/23 [History] Cholecalciferol [Vitamin D3 (25 Mcg = 1000 Iu)] 25 mcg PO DAILY 05/06/23 [History] Losartan Potassium [Cozaar] 100 mg PO DAILY 05/06/23 [History] Montelukast Sodium 10 mg PO HS 05/06/23 [History] Omeprazole [PriLOSEC] 40 mg PO DAILY 05/06/23 [History] Apixaban [Eliquis] 10 mg PO BID tab 05/11/23 [Rx] HYDROcodone/APAP 7.5-325MG [Weston 7.5-325] 1 tab PO DAILY PRN #3 tab 05/11/23 [Rx] INSULIN ASPART (NovoLOG) [NovoLOG (formulary)] 0 unit SQ ACHS each 05/11/23 [Rx] Metoprolol Tartrate [Lopressor] 25 mg PO BID tab 05/11/23 [Rx] Nystatin 100,000 Unit/ml Susp [Mycostatin Oral Susp] 500,000 unit PO QID 9 Days ml 05/11/23 [Rx] dexAMETHasone ORAL [Hexadrol] 4 mg PO DAILY tab 05/11/23 [Rx] Follow up Appointment(s)/Referral(s): [facility] [NON-STAFF] - 1 Week Brittni Gilbert MD [Primary Care Provider] - 1 Week (at [facility]) Rei Matute MD [STAFF PHYSICIAN] - 2 Weeks Discharge Disposition: TRANSFER TO SNF/F
[2023-05-11 12:40] VITALS: BP 147/68; PULSE 68
--- NOTE | 2023-05-11 14:13 | P.PN ---
Subjective Progress Note Date: 05/11/23 Principal diagnosis: Respiratory failure. Acute hypoxic respiratory failure with acute right lower lobe pneumonia and acute COVID-19 infection as well as acute on chronic pulmonary embolism and acute deep vein thrombosis This is an 82-year-old female with a known history of chronic obstructive pulmonary disease, pulmonary hypertension, former smoker on home oxygen who was recently diagnosed with CoVID and had been recovering at home with home health care nurses. Last evening she became very fatigued and weak she presented to the emergency room this morning with headache nausea shortness of breath and weakness. She also was having fevers. EKG revealed atrial fibrillation with a rapid ventricular response and some ST and T wave abnormalities. X-ray revealed chronic changes at the lung bases with a developing right lower lobe infiltrate. CT angiogram revealed acute on chronic pulmonary embolism. Right lower lobe developing pneumonia difficult to exclude. White count 6.8. Hemoglobin 12.3. Platelets 263. Lymphocytes 0.7. D-dimer 2.74. Sodium 137. Potassium 4.2. Bicarb 22. BUN 27. Creatinine 0.91. Troponin 0.047. TSH less than 0.015. COVID-19 screen positive. She is seen today in consultation in the emergency department. She is currently resting on stretcher. Awake and alert in no acute distress. She is maintaining O2 saturations in the 90s on 4 L/m per nasal cannula. She is currently in sinus bradycardia. She had been initiated on a he blanca drip. Cardizem drip at 5 mg per hour. Currently afebrile. Patient was seen and examined today on 05/07/2023, patient was admitted with acute COVID-19 infection, DVT, pulmonary embolism, and atrial fibrillation with RVR, and possible right lower lobe pneumonia. Possibly COVID-19 pneumonia or bacterial pneumonia superimposed on COVID-19 infection. At any rate patient is doing well, patient was seen by cardiology and her heparin was discontinued, she is now on eliquis. Echocardiogram is pending, patient will be started on metoprolol as per cardiology, patient is now off Cardizem. Remains empirically on antibiotics in the form of Rocephin and Zithromax, pro-calcitonin level is pending. Medically the patient is improving, and responding well to present treatment. Progress note dated 05/08/2023. 82-year-old female admitted with a diagnosis of acute coronavirus infection, DVT, pulmonary embolism, atrial fibrillation with RVR, and possible pneumonia, right lower lobe. The patient is seen today in room 362. She continues on oxygen at 4 L. The patient's getting saline at 75 mL an hour. The patient was also discovered to have a right lower extremity DVT. Current labs include a white count of 13.3, hemoglobin 11.9, hematocrit 38.1, and a platelet count of 287,000. Sodium 135, potassium 4, chlorides 104, CO2 20, BUN 20, creatinine 0.58. Chest x-ray from May 07 shows a right basilar infiltrate, and changes of COPD. Progress note dated 05/09/2023. Female admitted with a diagnosis of acute coronavirus infection, deep vein thrombosis, pulmonary embolism, atrial fibrillation/RVR, and possible right lower lobe pneumonia. The patient is seen today in room 362. Continues on oxygen at 4 L. Saturations are 96%. The patient is not receiving any IV fluids. Chest x-ray portable, is ordered for tomorrow. The patient is a DO NOT RESUSCITATE patient. No new labs today other than a glucose of 103. Labs from yesterday have been reviewed. Progress note dated 05/10/2023. 82-year-old female with a diagnosis of acute coronavirus infection, deep vein thrombosis, pulmonary embolism, atrial fibrillation/RVR, and right lower lobe pneumonia. Currently, she is on 5 L nasal cannula. He getting saline at 75 mL an hour. Her most recent chest x-ray shows slight improvement. Current laboratory data includes a white count 6.4, hemoglobin 11.5, hematocrit 36.3, and a normal platelet count. Sodium 137, potassium 3.9, chlorides 105, CO2 22, UN 27, creatinine 0.62. The rest of the labs look okay. Progress note dated 05/11/2023. 82-year-old female with a diagnosis of acute coronavirus infection, deep vein thrombosis, pulmonary embolism, atrial fibrillation with RVR, and right lower lobe pneumonia. The patient is currently on oxygen at 4 L. She's not receiving any IV fluids. The patient appears to be relatively stable from both respiratory and cardiovascular standpoint. No new labs today other than a glucose of 101. Objective - Vital Signs Vital signs: Vital Signs Temp 97.8 F 05/11/23 08:00 Pulse 68 05/11/23 12:00 Resp 16 05/11/23 12:00 BP 147/68 05/11/23 12:00 Pulse Ox 96 05/11/23 12:00 FiO2 Intake & Output 05/10/23 05/11/23 05/11/23 18:59 06:59 18:59 Intake Total 20 20 10 Output Total 600 Balance 20 -580 10 Weight 45.359 kg Intake: IV 20 20 10 Invasive Line 2 20 20 10 Output: Urine 600 Other: Voiding Method External Catheter External Catheter External Catheter # Voids 1 1 # Bowel Movements 1 - Exam No acute distress, oriented 3. Currently on 4 L of oxygen by nasal cannula. HEENT examination is grossly unremarkable. Mucous membranes are moist. No oral lesions. Neck supple. Full range of motion. No adenopathy thyromegaly or neck vein distention. Cardiovascular examination reveals regular rhythm rate. S1-S2 normal. No S3 or S4. No discernible murmur noted. Heart sounds are distant. Heart rate still 9 bpm. Lungs reveal right basilar crackles. No wheezes. No rhonchi. Saturations are 95 percent on 4 L. Breath sounds are otherwise equal. Abdomen soft bowel sounds are heard. No masses or tenderness. Extremities are intact. No cyanosis clubbing or edema. Skin is without rash or lesion. Neurologic examination is brief but nonfocal. - Labs CBC & Chem 7: 05/10/23 08:56 05/10/23 08:56 Labs: Abnormal Lab Results - Last 24 Hours (Table) 05/10/23 05/10/23 Range/Units 16:39 20:12 POC Glucose (mg/dL) 167 H 230 H (70-110) mg/dL Microbiology - Last 24 Hours (Table) 05/10/23 13:10 Gram Stain - Preliminary Sputum Assessment and Plan Assessment: Acute hypoxemic respiratory failure, multifactorial. Acute on chronic pulmonary embolism. Acute deep vein thrombosis. Atrial fibrillation, new onset with rapid ventricular response. Community-acquired pneumonia, right lower lobe. Recent coronavirus infection. Plan: Plan dated 05/08/2023. The patient was transitioned to a factor X a inhibitor, from heparin. The patient continues on antibiotics in the form of ceftriaxone, and azithromycin. Additional recommendations and suggestions are forthcoming. Pro-calcitonin level is elevated at 0.29. Labs, x-rays, and medications are reviewed. We will continue to follow the patient, and make recommendations along the way. The patient's overall prognosis remains very guarded. Plan dated 05/09/2023. The patient is seen today in room 362. She continues on oxygen at 4 L. Labs, x-rays, and medications are reviewed. The patient continues on azithromycin, and Rocephin. In addition, the patient is getting vitamin C, vitamin D3, and zinc. The patient is also getting Decadron, 6 mg daily. We will continue to follow, and make recommendations along the way. The patient's overall prognosis remains guarded. The patient is a DO NOT RESUSCITATE patient. We will continue to follow make recommendations, where appropriate. Plan dated 05/10/2023. The patient is seen today in room 362. The patient's chest x-ray, and my opinion, is slightly improved. She still does have a right lower lobe infiltrate. She's currently on 5 L of oxygen. Labs, x-rays, medications are reviewed. Saturations are 96%. Clinically, she feels better. She continues on antibiotics, vitamins, and Decadron. We will continue to follow the patient, make recommendations along the way. The patient is a DO NOT RESUSCITATE patient. Prognosis is certainly guarded. Plan dated 05/11/2023. The patient is seen today in room 362. She currently is on 4 L of oxygen. She's not manifesting any signs or symptoms of respiratory distress. No use of accessory muscles, or audible wheezing, or conversational dyspnea. Labs, x- rays, medications are reviewed. The patient is a DO NOT RESUSCITATE patient. We will continue to follow make recommendations along the way. She continues on antibiotics, vitamins, and Decadron. Time with Patient: Less than 30
== END 2023-05-11 14:09 | DRG 175 ==
LOC: EC 06:36 → 1SOBS 09:47 → 3SCARD 16:27
PROVIDERS: ADMIT Internal Medicine; ATTEND Internal Medicine
DX: I26.99 Other pulmonary embolism without acute cor pulmonale (principal); J18.9 Pneumonia, unspecified organism; J96.21 Acute and chronic respiratory failure with hypoxia; I82.431 Acute embolism and thrombosis of right popliteal vein; I82.411 Acute embolism and thrombosis of right femoral vein; B37.0 Candidal stomatitis; I48.92 Unspecified atrial flutter; J82.83 Eosinophilic asthma; U09.9 Post COVID-19 condition, unspecified; E78.2 Mixed hyperlipidemia; I27.20 Pulmonary hypertension, unspecified; I48.0 Paroxysmal atrial fibrillation; Z87.01 Personal history of pneumonia (recurrent); J43.9 Emphysema, unspecified; K21.9 Gastro-esophageal reflux disease without esophagitis; Z66 Do not resuscitate; Z79.01 Long term (current) use of anticoagulants; Z79.899 Other long term (current) drug therapy; Z87.891 Personal history of nicotine dependence; Z99.81 Dependence on supplemental oxygen
CPT/HCPCS: 36415; 71045; 71046; 71275; 76536; 80048; 80053; 83735; 84145; 84439; 84443; 84445; 84484; 85025; 85027; 85379; 85610; 85730; 86140; 86376; 87040; 87070; 87205; 87449; 87635; 93005; 93308; 93970; 94640; 94760; 96361; 96365; 96366; 96374; 96375; 99285

== ENCOUNTER 2023-05-21 15:16 | Emergency (ER) | payer MEDICARE ==
--- NOTE | 2023-05-21 16:37 | ED ---
Fall HPI - General Chief Complaint: Fall Stated Complaint: fall Time Seen by Provider: 05/21/23 16:06 Source: patient Mode of arrival: ambulatory - History of Present Illness Initial Comments: 82-year-old female with a past medical history significant for A. fib on Eliquis presenting via [facility] s/p fall. Per patient's daughter, patient normally sleeps slanted on her right side on the edge of the bed. Per patient, states that she slipped out of bed onto the floor and landed onto her right shoulder. Also notes that she hit her head on the floor as well. There is no LOC at this time. Patient now presenting secondary to head injury on blood thinners. At this time, patient denies pain and deferred pain medications. No dizziness lightheadedness chest pain or shortness of breath prior to the fall. No other complaints. - Related Data Home Medications Medication Instructions Recorded Confirmed Acetaminophen Tab [Tylenol] 500 mg PO Q6HR PRN 05/06/23 05/06/23 Albuterol Nebulized [Ventolin 2.5 mg INHALATION RT-Q6H PRN 05/06/23 05/06/23 Nebulized] Albuterol Sulfate [Albuterol 1 - 2 puff PO RT-Q6H PRN 05/06/23 05/06/23 Sulfate Hfa] Ascorbic Acid [Vitamin C] 500 mg PO BID 05/06/23 05/06/23 Atorvastatin [Lipitor] 40 mg PO HS 05/06/23 05/06/23 Cholecalciferol [Vitamin D3 (25 25 mcg PO DAILY 05/06/23 05/06/23 Mcg = 1000 Iu)] Losartan Potassium [Cozaar] 100 mg PO DAILY 05/06/23 05/06/23 Montelukast Sodium 10 mg PO HS 05/06/23 05/06/23 Omeprazole [PriLOSEC] 40 mg PO DAILY 05/06/23 05/06/23 Previous Rx's Medication Instructions Recorded Apixaban [Eliquis] 10 mg PO BID tab 05/11/23 HYDROcodone/APAP 7.5-325MG [[place] 1 tab PO DAILY PRN #3 tab 05/11/23 7.5-325] INSULIN ASPART (NovoLOG) [NovoLOG 0 unit SQ ACHS each 05/11/23 (formulary)] Metoprolol Tartrate [Lopressor] 25 mg PO BID tab 05/11/23 Nystatin 100,000 Unit/ml Susp 500,000 unit PO QID 9 Days ml 05/11/23 [Mycostatin Oral Susp] dexAMETHasone ORAL [Hexadrol] 4 mg PO DAILY tab 05/11/23 Allergies Allergy/AdvReac Type Severity Reaction Status Date / Time fentanyl Allergy Unknown Verified 05/21/23 15:38 tramadol Allergy Unknown Verified 05/21/23 15:38 Review of Systems ROS Statement: Those systems with pertinent positive or pertinent negative responses have been documented in the HPI. ROS Other: All systems not noted in ROS Statement are negative. Past Medical History Past Medical History: COPD Additional Past Medical History / Comment(s): Emphysema, Pulmonary HTN History of Any Multi-Drug Resistant Organisms: None Reported Past Surgical History: No Surgical Hx Reported Additional Past Surgical History / Comment(s): aortic stent 1995. Past Anesthesia/Blood Transfusion Reactions: Previous Problems w/ Anesthesia Additional Past Anesthesia/Blood Transfusion Reaction / Comment(s): Family states "Hard to wake up from anesthesia.". NO blood transfusions in past. Past Psychological History: Anxiety, Depression Smoking Status: Never smoker Past Alcohol Use History: None Reported Past Drug Use History: None Reported General Exam Limitations: language barrier (Hard of hearing) General appearance: alert Head exam: Present: other (No battles sign or racoons eyes. ) Eye exam: Present: normal appearance Neck exam: Present: normal inspection Respiratory exam: Present: normal lung sounds bilaterally Cardiovascular Exam: Present: regular rate, normal rhythm GI/Abdominal exam: Present: soft Extremities exam: Present: other (Full active range of motion of right shoulder. Strength and sensation equal and intact bilateral upper extremities. Radial pulses 2+.) Neurological exam: Present: alert, oriented X3 Course Vital Signs 05/21/23 05/21/23 15:30 17:53 Temperature 97.4 F L Pulse Rate 76 72 Respiratory 20 18 Rate Blood Pressure 114/69 118/73 O2 Sat by Pulse 97 99 Oximetry Medical Decision Making - Medical Decision Making Was pt. sent in by a medical professional or institution (, PA, COMPENSATION BUSINESS PARTNER, urgent care, hospital, or halfway...) When possible be specific @ -[place] Did you speak to anyone other than the patient for history (EMS, parent, family, police, friend...)? What history was obtained from this source @ -Spoke to both patient and daughter for history. For further details please see HPI. Did you review nursing and triage notes (agree or disagree)? Why? @ -I reviewed and agree with nursing and triage notes Were old charts reviewed (outside hosp., previous admission, EMS record, old EKG, old radiological studies, urgent care reports/EKG's, halfway records)? Report findings @ -No old charts were reviewed Differential Diagnosis (chest pain, altered mental status, abdominal pain women, abdominal pain men, vaginal bleeding, weakness, fever, dyspnea, syncope, headache, dizziness, GI bleed, back pain, seizure, CVA, palpatations, mental health, musculoskeletal)? @ -Differential Headache: Migraine, tension, cluster, carbon monoxide, central venous thrombosis, pension karma temporal arteritis, acute closure glaucoma, intercranial hemorrhage, mastoiditis, sinusitis, head injury, this is not meant to be an all-inclusive list. EKG interpreted by me (3pts min.). @ -As above X-rays interpreted by me (1pt min.). @ -X-ray of the shoulder interpreted by me shows no evidence of fracture or other acute finding. CT interpreted by me (1pt min.). @ -CT brain interpreted by me showed no evidence of bleed or other acute finding. U/S interpreted by me (1pt. min.). @ -None done What testing was considered but not performed or refused? (CT, X-rays, U/S, labs)? Why? @ -None What meds were considered but not given or refused? Why? @ -None Did you discuss the management of the patient with other professionals (professionals i.e. , PA, COMPENSATION BUSINESS PARTNER, lab, RT, psych nurse, social insurance specialist, timber sprinkler, teacher, president and chief operating officer, field case manager)? Give summary @ -No Was smoking cessation discussed for >3mins.? @ -No Was critical care preformed (if so, how long)? @ -No Were there social determinants of health that impacted care today? How? (Homelessness, low income, unemployed, alcoholism, drug addiction, transportation, low edu. Level, literacy, decrease access to med. care, [facility], rehab)? @ -No Was there de-escalation of care discussed even if they declined (Discuss DNR or withdrawal of care, Hospice)? DNR status @ -No What co-morbidities impacted this encounter? (DM, HTN, Smoking, COPD, CAD, Cancer, CVA, ARF, Chemo, Hep., AIDS, mental health diagnosis, sleep apnea, morbid obesity)? @ -A-fb Was patient admitted / discharged? Hospital course, mention meds given and route, prescriptions, significant lab abnormalities, going to OR and other pertinent info. @ -Discharge 82-year-old female with a past medical history of A. fib on thinners presenting to the ED with head injury. Patient slipped out of bed landing onto her right shoulder and hitting the right side of her head. Exam shows no obvious signs of head trauma. Imaging studies at this time are unremarkable for acute finding. Patient discharged home in stable condition. Discussed return precautions patient verbalizes agreement. Undiagnosed new problem with uncertain prognosis? @ -No Drug Therapy requiring intensive monitoring for toxicity (Heparin, Nitro, Insulin, Cardizem)? @ -No Were any procedures done? @ -No Diagnosis/symptom? @ -Fall out of bed Acute, or Chronic, or Acute on Chronic? @ -Acute Uncomplicated (without systemic symptoms) or Complicated (systemic symptoms)? @ -Uncomplicated Side effects of treatment? @ -No Exacerbation, Progression, or Severe Exacerbation? @ -No Poses a threat to life or bodily function? How? (Chest pain, [place], [place], pneumonia, PE, COPD, DKA, ARF, appy, cholecystitis, CVA, Diverticulitis, Homicidal, Suicidal, threat to staff... and all critical care pts) @ -No Disposition Clinical Impression: Fall Disposition: HOME SELF-CARE Condition: Good Instructions (If sedation given, give patient instructions): Fall Prevention for Older Adults (ED) Additional Instructions: Please return to the Emergency Department if symptoms worsen or any other concerns. Please is follow-up with your primary care provider. Is patient prescribed a controlled substance at d/c from ED?: No Referrals: Brittni Gilbert MD [Primary Care Provider] - 1-2 days Time of Disposition: 21:17
[2023-05-21 18:20] VITALS: RESP 18
--- NOTE | 2023-05-21 19:26 | XR ---
EXAMINATION TYPE: XR shoulder complete RT DATE OF EXAM: 05/21/2023 4:49 PM CLINICAL INDICATION:Female, 82 years old with history of r/o fx; [facility] COMPARISON: None TECHNIQUE: XR shoulder complete RT; shoulder was examined in AP, internally rotated and scapular Y p rojections. FINDINGS: Bones appear somewhat osteopenic. Mild degenerative changes of the acromioclavicular and glenohumeral joints. A few tiny lucencies with well circumscribed corticated margins in the proximal humerus, lik emma chronic/degenerative. No acute fracture or dislocation is seen. Unremarkable soft tissues. IMPRESSION: No acute osseous pathology. Mild degenerative changes.
--- NOTE | 2023-05-21 20:52 | CT ---
EXAMINATION TYPE: CT brain cspine wo con CT DLP: 1190.6 mGycm, Automated exposure control for dose reduction was used. DATE OF EXAM: 05/21/2023 5:16 PM COMPARISON: None. CLINICAL INDICATION:Female, 82 years old with history of s/p fall on thinners; s/p fall on thinners TECHNIQUE: Brain: Multiple axial CT images of the brain were obtained without IV contrast. Cspine: Axial CT images from the skull base to the inferior aspect of T2 we obtained without intraven ous contrast. Coronal and sagittal reformatted images were also reviewed. FINDINGS: Brain: Extra-axial spaces: No abnormal extra-axial fluid collections. Ventricular system: Appear dilated in proportion to the degree of cerebral atrophy. Cerebral parenchyma: No increased attenuation to suggest acute intraparenchymal hemorrhage. The gra y-white matter interface appears maintained. Moderate to severe generalized brain atrophy. Scattere d hypoattenuating areas are seen within the cerebral white matter, nonspecific but most often seen wi th chronic microvascular ischemic changes; moderate in degree. Cerebellum: No acute abnormality. Mass effect: No evidence of mass effect or midline shift. Intracranial vasculature: Atherosclerotic calcifications of the larger arteries near the skull base. Soft tissues: Normal. Visualized orbits: Orbital contents appear grossly intact. Calvarium/osseous structures: Skull appears somewhat osteopenic but intact. Paranasal sinuses and mastoid air cells: Mildly closed thickening of the maxillary sinuses, with some superimposed frothy secretions involving the right more than left. There is likely postoperative ope marty in the medial right maxillary. Additional frothy secretions in the right more than left sphenoid sinuses. Mastoid air cells appear clear. MRI is more sensitive for detecting acute processes such as infarct, and may be considered if clinica lly warranted. Cervical spine: Fracture: None seen. Osseous structures, spinal canal/neural foramina: Generalized osteopenia. Generally mild/moderate mul tilevel degenerative disc disease and facet arthrosis, especially C3-C4 through C6-C7, where disc mar ginal osteophytes cause mild canal and bilateral neural foraminal stenoses. Alignment: No traumatic malalignment. Neck soft tissues: No acute finding. There are multiple atherosclerotic calcifications seen, involvin g the carotid bifurcations primarily but also present elsewhere including throughout the vertebral ar teries. Other: Lung apices show no acute infiltrate or pneumothorax. Moderate to severe pulmonary emphysemat ous changes. IMPRESSION: CT head: 1. No acute intracranial CT abnormality. 2. Atrophy and chronic microvascular ischemic changes. 3. Frothy secretions in multiple paranasal sinuses, correlate for acute disease. CT cervical spine: 1. No evidence of cervical spine fracture or traumatic malalignment. 2. Mild/moderate cervical spondylosis. 3. Moderate to severe pulmonary emphysematous changes. 4. Extensive arterial vascular calcifications.
[2023-05-21 21:57] VITALS: BP 135/72; PULSE 56; TEMP 97.9
== END 2023-05-21 22:00 | disposition home or self-care (01) ==
LOC: EC 15:16
DX: S09.90XA Unspecified injury of head, initial encounter (principal); M47.812 Spondylosis without myelopathy or radiculopathy, cervical region; J44.9 Chronic obstructive pulmonary disease, unspecified; Z86.59 Personal history of other mental and behavioral disorders; Z88.5 Allergy status to narcotic agent; Z88.8 Allergy status to other drugs, medicaments and biological substances; W06.XXXA Fall from bed, initial encounter
CPT/HCPCS: 70450; 72125; 99285

== ENCOUNTER → 2023-05-31 | Outpatient (CLI) | payer MEDICARE | END | disposition home or self-care (01) | LOC: RADNMMAIN 08:39 | PROVIDERS: ATTEND Internal Medicine | DX: Z53.9 Procedure and treatment not carried out, unspecified reason (principal) ==

== ENCOUNTER 2023-06-16 17:01 | Emergency (ER) | payer MEDICARE ==
[2023-06-16] MEDS ORDERED: IPRATROPIUM-ALBUTEROL 3 ML NEB INHALATION STA (17:37)
[2023-06-16 17:54] LABS: Anisocytosis Slight; Basophils # (A) 0.1 k/uL (0-0.2); Basophils % (A) 2 %; Eosinophils # (A) 0.2 k/uL (0-0.7); Eosinophils % (A) 2 %; HCT 38.3 % (34.0-46.0); HGB 12.4 gm/dL (11.4-16.0); Hypochromasia Slight; Lymphocytes # (A) 1.4 k/uL (1.0-4.8); Lymphocytes % (A) 18 %; MCH 26.9 pg (25.0-35.0); MCHC 32.2 g/dL (31.0-37.0); MCV 83.6 fL (80.0-100.0); Mean Platelet Volume 8.2; Monocytes # (A) 0.6 k/uL (0-1.0); Monocytes % (A) 8 %; Neutrophils # (A) 5.5 k/uL (1.3-7.7); Neutrophils % (A) 68 %; Platelet Count 409 k/uL (150-450); RBC 4.59 m/uL (3.80-5.40); RDW 16.6 % (11.5-15.5)
[2023-06-16 18:03] LABS: Partial Thromboplastin Time 32.6 sec (22.0-30.0); Prothrombin Time 10.6 sec (10.0-12.5)
[2023-06-16 18:10] LABS: ALT 14 U/L (4-34); AST 23 U/L (14-36); African American GFR (CKD) 69 (>60 ml/min/1.73 sqM); Albumin 3.4 g/dL (3.5-5.0); Alkaline Phosphatase 105 U/L (38-126); Anion Gap 13 mmol/L; Blood Urea Nitrogen 20 mg/dL (7-17); Calcium 9.4 mg/dL (8.4-10.2); Carbon Dioxide 25 mmol/L (22-30); Chloride 102 mmol/L (98-107); Glucose 111 mg/dL (74-99); Non-African American GFR(CKD) 60 (>60 ml/min/1.73 sqM); Potassium 4.2 mmol/L (3.5-5.1); Sodium 140 mmol/L (137-145); Total Bilirubin 0.4 mg/dL (0.2-1.3); Total Protein 6.9 g/dL (6.3-8.2)
--- NOTE | 2023-06-16 18:58 | CT ---
EXAMINATION TYPE: CT brain wo con CT DLP: 1095.4 mGycm, Automated exposure control for dose reduction was used. DATE OF EXAM: 06/16/2023 6:25 PM COMPARISON: 05/21/2023. CLINICAL INDICATION:Female, 82 years old with history of possible fall on thinners, Possible fall on thinners. TECHNIQUE: Brain: Axial CT images of the brain were obtained with coronal and sagittal reformats created and rev iewed. Contrast used: None. Oral contrast used: None. FINDINGS: Brain: Extra-axial spaces: No abnormal extra-axial fluid collections. Ventricular system: Dilatation in proportion to cerebral atrophy. Cerebral parenchyma: Cerebral atrophy. No acute intraparenchymal hemorrhage or mass effect. The sesay -white junction is well differentiated. Scattered hypoattenuating areas are seen within the white mat ter. Cerebellum: Unremarkable. Mass effect: No evidence of midline shift. Intracranial vasculature: unremarkable Soft tissues: Normal. Calvarium/osseous structures: No depressed skull fracture. Paranasal sinuses and mastoid air cells: Mild scattered paranasal sinus disease. Visualized orbits: Bilateral aphakia IMPRESSION: 1. No acute intracranial process. 2. Nonspecific white matter changes, likely secondary to chronic small vessel ischemic disease.
--- NOTE | 2023-06-16 19:02 | XR ---
EXAMINATION TYPE: XR chest 2V DATE OF EXAM: 06/16/2023 6:49 PM CLINICAL INDICATION:Female, 82 years old with history of difficulty breathing; [facility] COMPARISON: Chest radiographs from 05/10/2023. TECHNIQUE: XR chest 2V Frontal and lateral views of the chest. FINDINGS: Lungs/Pleura: Blunting of the diaphragms with increased lucency along apices. Prominent interstitial lung markings are seen scattered throughout the lungs. Interstitial changes in the lung bases are wor se posteriorly over the spine. No evidence of focal consolidation, pneumothorax or pleural effusion. Pulmonary vascularity: Unremarkable. Heart/mediastinum: Cardiomediastinal silhouette is enlarged and stable. Atherosclerotic calcificatio ns are seen in the aorta. Musculoskeletal: No acute osseous pathology. IMPRESSION: 1. Improved basilar reticular opacities compared to prior. Correlate for pulmonary fibrotic changes. No evidence for heart failure. 2. Emphysema.
[2023-06-16 19:54] LABS: Appearance,Urine Clear (Clear); Bilirubin,Urine Negative (Negative); Blood,Urine Negative (Negative); Color,Urine Yellow; Glucose,Urine (UA) Negative (Negative); Ketones,Urine Negative (Negative); Leukocyte Esterase,Urine Negative (Negative); Nitrite,Urine Negative (Negative); PH, Urine 6.5 (5.0-8.0); Protein,Urine Negative (Negative); Specific Gravity,Urine 1.015 (1.001-1.035); Urobilinogen,Urine <2.0 mg/dL (<2.0)
[2023-06-16] MEDS ORDERED: SODIUM CHLORIDE 0.9% 500 ML 500 ML IV ONE (20:03)
[2023-06-16 20:37] VITALS: RESP 20
[2023-06-16] MEDS ORDERED: ASPIRIN 325 MG TAB PO STA (21:07)
--- NOTE | 2023-06-16 21:07 | ED ---
General Adult HPI - General Chief complaint: Shortness of Breath Stated complaint: SOB Time Seen by Provider: 06/16/23 17:10 Source: patient, EMS, RN notes reviewed, old records reviewed Mode of arrival: EMS Limitations: no limitations - History of Present Illness Initial comments: Patient is an 82-year-old female with past medical history remarkable for recently diagnosed PE on blood thinners, getting over pneumonia. Patient is chronically oxygen dependent due to hypoxic respiratory failure from COPD. Patient had a falling episode yesterday. She is on blood thinners. Was recently discharged back home from nursing facility. Patient was Covid positive originally when admitted. Presents today over concern after home nurse checked temperature at home via the ear as well as over the forehead and showed patient was febrile at 103F. Patient did not feel febrile. Patient also apparently had a pulse ox that was low at home however did not receive any treatments and currently has a normal pulse ox. She is no acute complaints at this time. Patient's daughter was also concerned that she thinks the patient may have an episode of right-sided weakness as well as facial involvement. Patient did have a fall yesterday and she is on blood thinners. She has no obvious symptoms at this time. Presents for further evaluation. - Related Data Home Medications Medication Instructions Recorded Confirmed Acetaminophen Tab [Tylenol] 500 mg PO Q6HR PRN 05/06/23 05/06/23 Albuterol Nebulized [Ventolin 2.5 mg INHALATION RT-Q6H PRN 05/06/23 05/06/23 Nebulized] Albuterol Sulfate [Albuterol 1 - 2 puff PO RT-Q6H PRN 05/06/23 05/06/23 Sulfate Hfa] Ascorbic Acid [Vitamin C] 500 mg PO BID 05/06/23 05/06/23 Atorvastatin [Lipitor] 40 mg PO HS 05/06/23 05/06/23 Cholecalciferol [Vitamin D3 (25 25 mcg PO DAILY 05/06/23 05/06/23 Mcg = 1000 Iu)] Losartan Potassium [Cozaar] 100 mg PO DAILY 05/06/23 05/06/23 Montelukast Sodium 10 mg PO HS 05/06/23 05/06/23 Omeprazole [PriLOSEC] 40 mg PO DAILY 05/06/23 05/06/23 Previous Rx's Medication Instructions Recorded Apixaban [Eliquis] 10 mg PO BID tab 05/11/23 HYDROcodone/APAP 7.5-325MG [[place] 1 tab PO DAILY PRN #3 tab 05/11/23 7.5-325] INSULIN ASPART (NovoLOG) [NovoLOG 0 unit SQ ACHS each 05/11/23 (formulary)] Metoprolol Tartrate [Lopressor] 25 mg PO BID tab 05/11/23 Nystatin 100,000 Unit/ml Susp 500,000 unit PO QID 9 Days ml 05/11/23 [Mycostatin Oral Susp] dexAMETHasone ORAL [Hexadrol] 4 mg PO DAILY tab 05/11/23 Allergies Allergy/AdvReac Type Severity Reaction Status Date / Time fentanyl Allergy Unknown Verified 06/16/23 17:13 tramadol Allergy Unknown Verified 06/16/23 17:13 Review of Systems ROS Statement: Those systems with pertinent positive or pertinent negative responses have been documented in the HPI. Review of Systems: CONST: Denies fever EYES: Denies blurry vision ENT: Denies nasal congestion C/V: Denies Chest pain RESP: Denies shortness of breath GI: Denies abdominal pain : Denies dysuria SKIN: Denies rash. MSK: Denies joint pain. NEURO: Denies headache ROS Other: All systems not noted in ROS Statement are negative. Past Medical History Past Medical History: COPD, Deep Vein Thrombosis (DVT), Pulmonary Embolus (PE) Additional Past Medical History / Comment(s): Emphysema, Pulmonary HTN, Oxygen 5L at home, DVT/PE- 2023. History of Any Multi-Drug Resistant Organisms: None Reported Past Surgical History: No Surgical Hx Reported Additional Past Surgical History / Comment(s): Aortic stent 1995. Past Anesthesia/Blood Transfusion Reactions: Previous Problems w/ Anesthesia Additional Past Anesthesia/Blood Transfusion Reaction / Comment(s): Family states "Hard to wake up from anesthesia.". NO blood transfusions in past. Past Psychological History: Anxiety, Depression Smoking Status: Never smoker Past Alcohol Use History: None Reported Past Drug Use History: None Reported General Exam - General Exam Comments Initial Comments: General: Appears in no acute distress. Afebrile. HEAD: Normal with no signs of head trauma. EYES: PERRLA, EOMI, conjunctiva normal, no discharge. ENT: Hearing grossly intact, normal oropharynx. RESPIRATORY: Mild bilateral wheezing. Normoxic on her normal 5 L nasal cannula. C/V: Regular rate and rhythm. S1 and S2 auscultated, no edema, peripheral pulses 2+ and intact throughout ABD: Abd is soft, nontender, nondistended EXT: Normal range of motion, no obvious deformity SKIN: No rashes or lesions observed on exposed skin. NEURO: Alert and oriented x 4. Cranial nerves II-XII intact. No focal sensory or strength deficits. NIH of 0. GCS of 15. Limitations: no limitations Course Vital Signs 06/16/23 06/16/23 06/16/23 17:02 17:21 18:35 Temperature 97.6 F 97.9 F Pulse Rate 68 65 Respiratory 22 19 18 Rate Blood Pressure 116/56 151/72 O2 Sat by Pulse 100 100 Oximetry 06/16/23 06/16/23 06/16/23 18:51 18:59 20:19 Temperature 98.0 F Pulse Rate 67 62 80 Respiratory 20 Rate Blood Pressure 128/76 O2 Sat by Pulse 100 Oximetry 06/16/23 21:24 Temperature 97.9 F Pulse Rate 81 Respiratory 20 Rate Blood Pressure 125/72 O2 Sat by Pulse 98 Oximetry Medical Decision Making - Medical Decision Making Was pt. sent in by a medical professional or institution (, PA, VOCATIONAL INSTRUCTOR, urgent care, hospital, or assisted...) When possible be specific @ -No Did you speak to anyone other than the patient for history (EMS, parent, family, police, friend...)? What history was obtained from this source @ -No Did you review nursing and triage notes (agree or disagree)? Why? @ -I reviewed and agree with nursing and triage notes Were old charts reviewed (outside hosp., previous admission, EMS record, old EKG, old radiological studies, urgent care reports/EKG's, assisted records)? Report findings @ -Old charts reviewed Differential Diagnosis (chest pain, altered mental status, abdominal pain women, abdominal pain men, vaginal bleeding, weakness, fever, dyspnea, syncope, headache, dizziness, GI bleed, back pain, seizure, CVA, palpatations, mental health, musculoskeletal)? @ -Differential Weakness: Hypoglycemia, shock, sepsis, hyponatremia, anemia, infection, MT, ETOH, adverse medicine reaction, overdose, stroke, this is not meant to be an all-inclusive list. EKG interpreted by me (3pts min.). @ -As above X-rays interpreted by me (1pt min.). @ -Chest x-ray reveals no obvious acute cardiopulmonary process. CT interpreted by me (1pt min.). @ -CT brain reveals no obvious acute intracranial process. U/S interpreted by me (1pt. min.). @ -None done What testing was considered but not performed or refused? (CT, X-rays, U/S, labs)? Why? @ -None What meds were considered but not given or refused? Why? @ -None Did you discuss the management of the patient with other professionals (professionals i.e. , PA, VOCATIONAL INSTRUCTOR, lab, RT, psych nurse, 7th grade social studies teacher, oil lease operator, teacher, service officer, renal case manager)? Give summary @ -No Was smoking cessation discussed for >3mins.? @ -No Was critical care preformed (if so, how long)? @ -No Were there social determinants of health that impacted care today? How? (Homelessness, low income, unemployed, alcoholism, drug addiction, transportation, low edu. Level, literacy, decrease access to med. care, intermediate, rehab)? @ -No Was there de-escalation of care discussed even if they declined (Discuss DNR or withdrawal of care, Hospice)? DNR status @ -No What co-morbidities impacted this encounter? (DM, HTN, Smoking, COPD, CAD, Cancer, CVA, ARF, Chemo, Hep., AIDS, mental health diagnosis, sleep apnea, morbid obesity)? @ -None Was patient admitted / discharged? Hospital course, mention meds given and route, prescriptions, significant lab abnormalities, going to OR and other pertinent info. @ -She presents with multiple findings at home by home nurse which are not reproduced here in the department. This includes a fever and patient is Afebrile without therapy. Also includes hypoxia however patient is currently normoxic on her normal 5 L nasal cannula oxygen. Has no acute complaints at this time. Family concerned for possible strokelike symptoms which currently are resolved this patient is an NIH of 0. Did have a fall earlier or yesterday. Is on blood thinners. We will obtain CT brain as well as labs, EKG, chest x- ray. Vital signs are currently within acceptable limits. She is afebrile. Patient was in agreement this plan. She has mild wheezes and will be given a breathing treatment. She also receive a small fluid bolus. Imaging is unremarkable. Patient's labs are also unremarkable. EKG shows no signs of acute ischemia. Reevaluation come patient remains stable. Vital signs unchanged. I did discuss at length with patient as well as patient's family members. Discussed that I do not believe that the patient had a fever, and that forehead as well as your t hermometers are not accurate. I recommended that they use oral thermometers or axillary of patient cannot do oral thermometers. Based chest understanding. Recommended continue use of oxygen at home. There is no indication for admission at this time. In the event the patient did suffer a TIA, but once again all of these were unwitnessed in the department we will administer a dose of 325 mg of aspirin. I do not believe the patient requires admission at this time as she is asymptomatic. Patient was in agreement this plan. She'll be discharged home at this time. I instructed the patient to follow up with their PCP in the next 1-3 days. I explained that the patient should return to the emergency department if they experience any worsening symptoms. Strict return precautions were discussed with the patient. The patient expressed understanding of these instructions. I an swered all questions that the patient had. The patient was discharged home in good condition with their prescriptions and follow up information. Undiagnosed new problem with uncertain prognosis? @ -No Drug Therapy requiring intensive monitoring for toxicity (Heparin, Nitro, Insulin, Cardizem)? @ -No Were any procedures done? @ -No Diagnosis/symptom? @ -Weakness Acute, or Chronic, or Acute on Chronic? @ -Acute Uncomplicated (without systemic symptoms) or Complicated (systemic symptoms)? @ -Uncomplicated Side effects of treatment? @ -No Exacerbation, Progression, or Severe Exacerbation? @ -No Poses a threat to life or bodily function? How? (Chest pain, [place], MT, pneumonia, PE, COPD, DKA, ARF, appy, cholecystitis, CVA, Diverticulitis, Homicidal, Suicidal, threat to staff... and all critical care pts) @ -No Diagnosis/symptom? @ -Chronic hypoxic respiratory failure Acute, or Chronic, or Acute on Chronic? @ -Chronic Uncomplicated (without systemic symptoms) or Complicated (systemic symptoms)? @ -Complicated Side effects of treatment? @ -none Exacerbation, Progression, or Severe Exacerbation] @ -no Poses a threat to life or bodily function? @ -Not currently as it is controlled. - Lab Data Result diagrams: 06/16/23 17:30 06/16/23 17:30 Lab Results 06/16/23 06/16/23 06/16/23 Range/Units 17:30 17:30 17:30 WBC 8.0 (3.8-10.6) k/uL RBC 4.59 (3.80-5.40) m/uL Hgb 12.4 (11.4-16.0) gm/dL Hct 38.3 (34.0-46.0) % MCV 83.6 (80.0-100.0) fL MCH 26.9 (25.0-35.0) pg MCHC 32.2 (31.0-37.0) g/dL RDW 16.6 H (11.5-15.5) % Plt Count 409 (150-450) k/uL MPV 8.2 Neutrophils % 68 % Lymphocytes % 18 % Monocytes % 8 % Eosinophils % 2 % Basophils % 2 % Neutrophils # 5.5 (1.3-7.7) k/uL Lymphocytes # 1.4 (1.0-4.8) k/uL Monocytes # 0.6 (0-1.0) k/uL Eosinophils # 0.2 (0-0.7) k/uL Basophils # 0.1 (0-0.2) k/uL Hypochromasia Slight Anisocytosis Slight PT 10.6 (10.0-12.5) sec INR 1.0 (<1.2) APTT 32.6 H (22.0-30.0) sec Sodium 140 (137-145) mmol/L Potassium 4.2 (3.5-5.1) mmol/L Chloride 102 (98-107) mmol/L Carbon Dioxide 25 (22-30) mmol/L Anion Gap 13 mmol/L BUN 20 H (7-17) mg/dL Creatinine 0.91 (0.52-1.04) mg/dL Est GFR (CKD-EPI)AfAm 69 (>60 ml/min/1.73 sqM) Est GFR (CKD-EPI)NonAf 60 (>60 ml/min/1.73 sqM) Glucose 111 H (74-99) mg/dL Calcium 9.4 (8.4-10.2) mg/dL Magnesium 2.0 (1.6-2.3) mg/dL Total Bilirubin 0.4 (0.2-1.3) mg/dL AST 23 (14-36) U/L ALT 14 (4-34) U/L Alkaline Phosphatase 105 (38-126) U/L Total Protein 6.9 (6.3-8.2) g/dL Albumin 3.4 L (3.5-5.0) g/dL Urine Color Urine Appearance (Clear) Urine pH (5.0-8.0) Ur Specific [place] (1.001-1.035) Urine Protein (Negative) Urine Glucose (UA) (Negative) Urine Ketones (Negative) Urine Blood (Negative) Urine Nitrite (Negative) Urine Bilirubin (Negative) Urine Urobilinogen (<2.0) mg/dL Ur Leukocyte Esterase (Negative) Influenza Type A (PCR) (Not Detectd) Influenza Type B (PCR) (Not Detectd) RSV (PCR) (Not Detectd) SARS-CoV-2 (PCR) (Not Detectd) 06/16/23 06/16/23 Range/Units 17:43 19:48 WBC (3.8-10.6) k/uL RBC (3.80-5.40) m/uL Hgb (11.4-16.0) gm/dL Hct (34.0-46.0) % MCV (80.0-100.0) fL MCH (25.0-35.0) pg MCHC (31.0-37.0) g/dL RDW (11.5-15.5) % Plt Count (150-450) k/uL MPV Neutrophils % % Lymphocytes % % Monocytes % % Eosinophils % % Basophils % % Neutrophils # (1.3-7.7) k/uL Lymphocytes # (1.0-4.8) k/uL Monocytes # (0-1.0) k/uL Eosinophils # (0-0.7) k/uL Basophils # (0-0.2) k/uL Hypochromasia Anisocytosis PT (10.0-12.5) sec INR (<1.2) APTT (22.0-30.0) sec Sodium (137-145) mmol/L Potassium (3.5-5.1) mmol/L Chloride (98-107) mmol/L Carbon Dioxide (22-30) mmol/L Anion Gap mmol/L BUN (7-17) mg/dL Creatinine (0.52-1.04) mg/dL Est GFR (CKD-EPI)AfAm (>60 ml/min/1.73 sqM) Est GFR (CKD-EPI)NonAf (>60 ml/min/1.73 sqM) Glucose (74-99) mg/dL Calcium (8.4-10.2) mg/dL Magnesium (1.6-2.3) mg/dL Total Bilirubin (0.2-1.3) mg/dL AST (14-36) U/L ALT (4-34) U/L Alkaline Phosphatase (38-126) U/L Total Protein (6.3-8.2) g/dL Albumin (3.5-5.0) g/dL Urine Color Yellow Urine Appearance Clear (Clear) Urine pH 6.5 (5.0-8.0) Ur Specific [place] 1.015 (1.001-1.035) Urine Protein Negative (Negative) Urine Glucose (UA) Negative (Negative) Urine Ketones Negative (Negative) Urine Blood Negative (Negative) Urine Nitrite Negative (Negative) Urine Bilirubin Negative (Negative) Urine Urobilinogen <2.0 (<2.0) mg/dL Ur Leukocyte Esterase Negative (Negative) Influenza Type A (PCR) Not Detected (Not Detectd) Influenza Type B (PCR) Not Detected (Not Detectd) RSV (PCR) Not Detected (Not Detectd) SARS-CoV-2 (PCR) Not Detected (Not Detectd) - EKG Data -: EKG Interpreted by Me EKG Comments: 12-lead Electrocardiogram Interpretation Note EKG was reviewed and interpreted by myself. 12-lead ECG performed at 1705 is interpreted by me as revealing normal sinus rhythm at a rate of 68 beats per minute. [place] is normal. NE interval is 116 ms, QRS duration is 80 ms, QTc is 406 ms.. There were no ST or T wave abnormalities to suggest myocardial ischemia or injury. R wave progression across the precordium was satisfactory. By my interpretation this EKG is non-diagnostic for acute ischemia. Disposition Clinical Impression: Weakness, Chronic hypoxic respiratory failure Disposition: HOME SELF-CARE Condition: Good Is patient prescribed a controlled substance at d/c from ED?: No Referrals: Ofelia,Anthony R, MD [Primary Care Provider] - 1-2 days Time of Disposition: 20:54
[2023-06-16 22:10] VITALS: BP 125/72; PULSE 81; TEMP 97.9
== END 2023-06-16 22:15 | disposition home or self-care (01) ==
LOC: EC 17:01
DX: J96.11 Chronic respiratory failure with hypoxia (principal); J44.9 Chronic obstructive pulmonary disease, unspecified; F41.9 Anxiety disorder, unspecified; F32.A Depression, unspecified; Z79.899 Other long term (current) drug therapy; Z88.8 Allergy status to other drugs, medicaments and biological substances; Z20.822 Contact with and (suspected) exposure to COVID-19
CPT/HCPCS: 36415; 51702; 70450; 71046; 80053; 81003; 83735; 85025; 85610; 85730; 87636; 93005; 94640; 96360; 99285